=== PATIENT | female | born 1960 | race Caucasian/White ===

== ENCOUNTER 2020-05-19 14:28 | Inpatient (IN) | payer MEDICARE, OTHER ==
[~2020-05-19] VITALS: Ht 152.4 cm; Wt 72.6 kg
[~2020-05-19 14:28] MED LIST: ALBU18HF2 INH; BUDE10.2 INH; ESCI20TA PO; LORA-259 PO; LORA10TA68 PO; MONT10TA22 PO; OMEP20CA15 PO; TIOT18CA3 INH; ZIPR20CA2 PO
[2020-05-19] MEDS ORDERED: DICL100G16 TP (14:56)
[2020-05-19] MEDS ORDERED: ERGO500040 PO (14:56)
[2020-05-19] MEDS ORDERED: DOCU250C21 PO (14:56)
[2020-05-19] MEDS ORDERED: NEBIVOLOL HCL PO (14:56)
[2020-05-19] MEDS ORDERED: ESTR2TAB PO (14:56)
[2020-05-19] MEDS ORDERED: OLAN5TAB3 PO (14:56)
[2020-05-19] MEDS ORDERED: BACL10TA PO (14:56)
[2020-05-19] MEDS ORDERED: LACT10SO PO (14:56)
[2020-05-19] MEDS ORDERED: TYL2T PO (14:56)
[2020-05-19] MEDS ORDERED: FURO20TA4 PO (14:57)
[2020-05-19] MEDS ORDERED: MAGNESIUM HYDROXIDE 30 ML UDC PO PRN (15:00)
[2020-05-19] MEDS ORDERED: TEMAZEPAM 7.5 MG CAPSULE PO PRN (15:00)
[2020-05-19] MEDS ORDERED: BLOOD SUGAR DIAGNOSTIC 1 EACH STRIP IN ONE (15:00)
[2020-05-19] MEDS ORDERED: CHOL500052 PO (15:01)
[2020-05-19] MEDS ORDERED: ZIPR20CA2 PO (15:03)
[2020-05-19] MEDS ORDERED: LINA145C PO (15:06)
[2020-05-19] MEDS ORDERED: BUPR-319 PO (15:06)
[2020-05-19] MEDS ORDERED: ACETAMINOPHEN 325 MG TABLET PO PRN (15:30)
[2020-05-19] MEDS: DOCUSATE SODIUM 250 MG CAPSULE PO SCH (17:00)
[2020-05-19] MEDS ORDERED: Medication Not On Formulary EA (Budesonide/Formoterol Fumarate (Symbicort 160-4.5 Mcg In INH SCH (17:00)
[2020-05-19] MEDS ORDERED: DICLOFENAC TOPICAL 100 GM GEL..GM. TP SCH (17:00)
[2020-05-19] MEDS ORDERED: ZIPRASIDONE 20 MG CAPSULE PO SCH (17:30)
--- NOTE | 2020-05-19 18:20 | NUR ---
GPS/RN- ADMISSION NOTES ADMITTED 60 YEARS OLD FEMALE PATIENT FROM [facility] ER. PATIENT ON 5150 HOLD FOR GD ADULT. PATIENT A/O X4 AMBULATORY STEADY GAIT. PATIENT IS UNCOOPERATIVE REFUSED TO BE INTERVIEWED DURING THE ADMISSION PROCESS. PATIENT IS ANGRY,ARGUMENTATIVE STATED " I WANT TO GO HOME ,DON'T TALK TO ME OR TOUCH ME". PATIENT REFUSED FULL BODY ASSESSMENT , PHOTO TAKEN AND MRSA SWAB. DR. PALM ( PSYCHIATRIST) SEEN THE PATIENT WITH ORDERS. DR. MYERS (OFFICE WORKFORCE PLANNER) DID RECONCILED PATIENT MEDICATIONS. PATIENT WAS ORIENTED IN THE UNIT AND UNIT POLICIES. PATIENT'S RIGHT BOOKLET AND ADVISEMENT WAS GIVEN TO THE PATIENT. PATIENT GAVE VERBAL CONSENT TO CALL HER MALE FRIEND ELLENMELINDA CARMONA AT [phone]. CALLED PATIENT SISTER CRISTOBAL CONNOR ) BUT THE NUMBER IS NOT IN SERVICE. WILL ENDORSE TO INCOMING NURSE/SHIFT TO CONTINUE MONITORING FOR SAFETY AND BEHAVIOR AND FOR CONTINUITY OF CARE .
--- NOTE | 2020-05-19 18:46 | NUR ---
GPS/RN-NOTES PATIENT REFUSED GEODON 40MG P.O SCHEDULED AT 1700. STATED" I WILL NEVER TAKE ANY MEDICATIONS WITH THAT DOCTOR",EXPLAINED RISK AND BENEFITS BUT PATIENT STILL REFUSED. OFFERED X3
[2020-05-19] MEDS: IPRATROPIUM NEB FS 0.5 MG/2.5 ML AMPUL.NEB NEB SCH (19:30)
[2020-05-19 20:13] VITALS: BP 108/71
[2020-05-19] MEDS: MAG HYDROX/AL HYDROX/SIMETH 30 ML UDC PO PRN (20:36)
--- NOTE | 2020-05-19 20:37 | NUR ---
GPS RN NOTE: INDIGESTION PT WAS COMPLAINING OF INDIGESTION, ASKED PT IF SHE WOULD LIKE MAALOX, SHE SAID YES. ADMIN MAALOX @ 2035. WILL REASSESS AND CONTINUE TO MONITOR Q15MIN FOR SAFETY AND BEHAVIOR,
[2020-05-19] MEDS: BACLOFEN (10 MG) 10 MG TABLET PO SCH (21:23)
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
[2020-05-20] MEDS: MAG HYDROX/AL HYDROX/SIMETH 30 ML UDC PO PRN (02:16)
--- NOTE | 2020-05-20 02:18 | NUR ---
GPS RN NOTE: INDIGESTION PT COMPLAINED OF HAVING INDIGESTION AGAIN SAID SHE WANTED WHAT I GAVE HER BEFORE, ADMIN MAAOLX PRN AT 0216. WILL REASSESS AND CONTINUE TO MONITOR Q15MIN FOR SAFETY AND BEHAVIOR
[2020-05-20] MEDS: IPRATROPIUM NEB FS 0.5 MG/2.5 ML AMPUL.NEB NEB SCH ×4 (02:27→19:30)
[2020-05-20 07:10] LABS: ALBUMIN 2.7 g/dL (3.4-5.0); BILIRUBIN,TOTAL 0.1 mg/dL (0.2-1.0); CALCIUM, SERUM 8.6 mg/dL (8.5-10.1); CREATININE 1.2 mg/dL (0.6-1.3); POTASSIUM 4.1 mmol/L (3.5-5.1); TOTAL PROTEIN, SERUM 6.2 g/dL (6.4-8.2)
[2020-05-20 07:11] LABS: CHOLESTEROL 189 mg/dL (<200); HDL CHOLESTEROL 50 mg/dL (40-60); LDL 112 mg/dL (0-99); TRIGLYCERIDES 173 mg/dL (30-150)
[2020-05-20 08:00] VITALS: BP 123/55
[2020-05-20] MEDS ORDERED: FLUTICASONE/VILANTEROL 1 EACH BLST.W.DEV IH SCH (09:00)
[2020-05-20] MEDS ORDERED: Medication Not On Formulary EA (Linaclotide (Linzess) 145 MCG) PO SCH (09:00)
[2020-05-20] MEDS: LACTULOSE 10 G/15 ML UDC (PYXIS) PO SCH (09:00)
[2020-05-20] MEDS: FUROSEMIDE 20 MG TABLET PO SCH ×2 (09:01→10:33)
[2020-05-20] MEDS: LORATADINE 10 MG TABLET PO SCH (09:01)
[2020-05-20] MEDS: DOCUSATE SODIUM 250 MG CAPSULE PO SCH ×2 (09:01→16:53)
[2020-05-20] MEDS: NICOTINE PATCH (14MG) 14 MG PATCH.TD24 TD SCH (09:01)
[2020-05-20] MEDS: PANTOPRAZOLE 40 MG TABLET.DR PO SCH (09:01)
[2020-05-20] MEDS: MONTELUKAST SODIUM (10MG) 10 MG TABLET PO SCH (09:01)
--- NOTE | 2020-05-20 10:16 | NUR ---
Family Contact: MAGEN called the pts sister, Nicole ([phone]), and was unable to leave a message because the call did not go through and it sounded like the SW called a fax line. The number may not be accurate.
[2020-05-20] MEDS: LINZESS 145MCG PO SCH (10:28)
[2020-05-20] MEDS: ESTRADIOL 1 MG TABLET PO SCH (10:28)
[2020-05-20] MEDS: SYMBICORT 160/4.5 INH SCH ×2 (10:28→16:53)
--- NOTE | 2020-05-20 10:31 | NUR ---
Family Contact: SW called the pts Kalin coulter ([phone]), who stated that the pt has been living in her home and that her sister and brother in law are involved in her care but they want to keep her in institutions. Pts yfn states that home is a safe environment for her but she needs more therapeutic help. SW stated that she will keep him involved in the discharge planning.
--- NOTE | 2020-05-20 10:33 | NUR ---
GPS RN NOTES PATIENT REFUSED 0900 LASIX. MEDICATION WAS DISPOSED IN MEDICATION WASTE CONTAINER.
--- NOTE | 2020-05-20 10:51 | NUR ---
Initial Discharge Plan: Pt currently resides in a home located at [address] [place] [address]; ([phone]) with others. Per pt, she would like to return so she can pack her belongings and move. MAGEN will work with the pt and the MD regarding appropriate discharge planning. SW will form a safe and proper discharge.
--- NOTE | 2020-05-20 13:05 | NUR ---
Individual Intervention with the MD and the pt: spoke to the pt about her current paranoid delusions and the pt stated that she still feels as if she was poisoned and that is why she is feeling groggy today. MD encouraged the pt to take Geodon and the pt state that she would comply with her medications. Pt then stated that she does not think that she should return to her home and the MD stated that she agreed. stated that the SW will assist with placement once she has stabilized a bit more.
--- NOTE | 2020-05-20 13:30 | NUR ---
RT PT REF BOTH SCHEDULED BREATHING TX TODAY. NO SOB OR RESP DISTRESS NOTED.
[2020-05-20] MEDS: ZIPRASIDONE 20 MG CAPSULE PO SCH (14:16)
[2020-05-20 16:00] VITALS: BP 120/72
--- NOTE | 2020-05-20 16:53 | NUR ---
GPS RN NOTES PATIENT ASLEEP, HARD TO AROUSE. PETTING HER HEAD MADE HER WAKE UP MORE. A BIT SLOW RESPONDING, REFUSED MEDS BECAUSE WANTS TO SLEEP. CHECKED VITAL SIGNS: BP: 124/70, HR 63 O2 98% ON ROOM AIR, BLOOD SUGAR 111, DECLINES ANY PAIN. WILL CONTINUE TO MONITOR PATIENT
--- NOTE | 2020-05-20 17:26 | NUR ---
GPS RN NOTES PATIENT IN BED, ASLEEP. BREATHING IS EVEN AND UNLABORED; NO SOB PRESENT AT THE MOMENT. NO S/S OF PAIN SUCH FACIAL GRIMACING, MOANING OR GUARDING. WILL CONTINUE TO MONITOR.
--- NOTE | 2020-05-20 17:46 | NUR ---
Dr. Forbes made aware that pt. is sedated but arousable. V/S taken: BP 125/72, MS 67, temp. 98.0 and oxygen sat 98%, RR 20 and with an orders of stat CBC,CMP, Magnesium, Troponin and EKG.
--- NOTE | 2020-05-20 18:07 | NUR ---
GPS RN NOTES EKG DONE; NORMAL SINUS RHYTHM 63
[2020-05-20 19:20] LABS: ALANINE AMINOTRANSFERASE 24 U/L (12-78); ALKALINE PHOSPHATASE 83 U/L (46-116); ASPARTATE AMINOTRANSFERASE 13 U/L (15-37); CARBON DIOXIDE 28 mmol/L (21-32); CHLORIDE 104 mmol/L (98-107); GLUCOSE 115 mg/dL (74-106); POTASSIUM 4.4 mmol/L (3.5-5.1); SODIUM SERUM 138 mmol/L (136-145); TOTAL PROTEIN, SERUM 7.1 g/dL (6.4-8.2); UREA NITROGEN, BLOOD 15 mg/dL (7-18)
--- NOTE | 2020-05-20 19:20 | NUR ---
GPS RN OPENING NOTES: RECEIVED PATIENT ASLEEP AND IN BED, AROUSABLE, ANSWERS WHEN CALL HER NAME, TURNED TO SIDE. NO S/S OF DISTRESS NOTED. NO COMPLAIN OF PAIN. BED IN LOWEST AND LOCKED POSITION. BED SIDERAILS UP X2 FOR SAFETY. WILL CONTINUE TO MONITOR.
[2020-05-20 19:49] LABS: BILIRUBIN,TOTAL 0.1 mg/dL (0.2-1.0); CREATININE 1.3 mg/dL (0.6-1.3); MAGNESIUM 2.4 mg/dL (1.8-2.4)
[2020-05-20 20:00] VITALS: BP 106/55
[2020-05-20 20:09] VITALS: BP 106/55
[2020-05-20 20:39] LABS: BASOPHILS # (AUTO) 0.1 /CMM (0.0-0.2); BASOPHILS % (AUTO) 0.4 % (0.0-2.0); EOSINOPHILS % (AUTO) 2.7 % (0.0-6.0); HEMATOCRIT 38 % (33-45); HEMOGLOBIN 12.1 g/dL (11.5-14.8); LYMPHOCYTES # (AUTO) 3.4 /CMM (0.8-4.8); LYMPHOCYTES % (AUTO) 26.9 % (20.0-44.0); MEAN CORPUSCULAR HGB CONC 32 g/dl (31.0-36.0); MEAN CORPUSCULAR VOLUME 93 fL (82-100); MONOCYTES # (AUTO) 0.7 /CMM (0.1-1.30); MONOCYTES % (AUTO) 5.7 % (2.0-12.0); NEUTROPHILS # (AUTO) 8.1 /CMM (1.8-8.9); NEUTROPHILS % (AUTO) 64.3 % (43.0-81.0); PLATELET COUNT (AUTO) 509 /CMM (150-450); RED BLOOD CELL COUNT(AUTO) 4.09 MIL/uL (4.0-5.2); WHITE BLOOD COUNT (AUTO) 12.6 K/uL (4.3-11.0)
[2020-05-20] MEDS: BACLOFEN (10 MG) 10 MG TABLET PO SCH (21:34)
--- NOTE | 2020-05-20 21:48 | NUR ---
DR PALM CALLED AND SPOKE TO THE CHARGE NURSE RE: UPDATES OF THE PATIENT'S STATUS. PATIENT TOOK HER BACLOFEN. PATIENT IS RESPONSIVE. ANSWERS QUESTIONS. PATIENT OPENS HER EYES WHEN ASKED TO.
[2020-05-21] MEDS: IPRATROPIUM NEB FS 0.5 MG/2.5 ML AMPUL.NEB NEB SCH ×4 (01:30→20:19)
--- NOTE | 2020-05-21 02:45 | NUR ---
PATIENT IS FULLY AWAKE NOW, NO S/S OF DISTRESS NOTED.JUST COMPLAINING OF SORE ON HER BACK. ASKED FOR SALTINE CRACKERS,GIVEN. ASSISTED TO THE BEDSIDE COMMODE,PATIENT VOIDED 300ML CLEAR URINE OUTPUT, URINE SAMPLE COLLECTED FOR TEST AND PLACED IN THE CONTAINER WITH ICE,CALLED THE LAB FOR PICK-UP. PATIENT PREFERS TO WEAR DIAPER. ELECTRONICS ENGINEERING PROFESSOR CHANGED DIAPER.
[2020-05-21 05:09] LABS: APPEARANCE,URINE CLEAR (CLEAR); BILIRUBIN,URINE NEGATIVE (NEGATIVE); BLOOD, URINE NEGATIVE Ery/uL (NEGATIVE); COLOR,URINE YELLOW (YELLOW); KETONES,URINE NEGATIVE (NEGATIVE); LEUKOCYTE ESTERASE ,URINE NEGATIVE (NEGATIVE); NITRITE, URINE NEGATIVE (NEGATIVE); PH,URINE 5.5 (5.0-8.0); PROTEIN,URINE NEGATIVE (NEGATIVE); UGLUCOSE NEGATIVE (NEGATIVE); UROBILINOGEN,URINE 0.2 EU/dL (0.2)
--- NOTE | 2020-05-21 06:29 | NUR ---
CLOSING NOTES: PATIENT IS ASLEEP IN BED. NO S/S OF DISTRESS NOTED. BED IN LOWEST AND LOCKED POSITION. V/S WNL. AFEBRILE.
[2020-05-21 06:43] LABS: BASOPHILS # (AUTO) 0.1 /CMM (0.0-0.2); BASOPHILS % (AUTO) 0.5 % (0.0-2.0); EOSINOPHILS % (AUTO) 3.7 % (0.0-6.0); HEMATOCRIT 35 % (33-45); HEMOGLOBIN 11.8 g/dL (11.5-14.8); LYMPHOCYTES # (AUTO) 3.3 /CMM (0.8-4.8); LYMPHOCYTES % (AUTO) 32.3 % (20.0-44.0); MEAN CORPUSCULAR HGB CONC 33 g/dl (31.0-36.0); MEAN CORPUSCULAR VOLUME 91 fL (82-100); MONOCYTES # (AUTO) 0.7 /CMM (0.1-1.30); MONOCYTES % (AUTO) 7.3 % (2.0-12.0); NEUTROPHILS # (AUTO) 5.7 /CMM (1.8-8.9); NEUTROPHILS % (AUTO) 56.2 % (43.0-81.0); PLATELET COUNT (AUTO) 492 /CMM (150-450); RED BLOOD CELL COUNT(AUTO) 3.87 MIL/uL (4.0-5.2); WHITE BLOOD COUNT (AUTO) 10.2 K/uL (4.3-11.0)
[2020-05-21 07:18] LABS: ALBUMIN 2.7 g/dL (3.4-5.0); BILIRUBIN,TOTAL 0.1 mg/dL (0.2-1.0); CALCIUM, SERUM 8.6 mg/dL (8.5-10.1); CREATININE 1.2 mg/dL (0.6-1.3); MAGNESIUM 2.5 mg/dL (1.8-2.4); POTASSIUM 4.1 mmol/L (3.5-5.1); TOTAL PROTEIN, SERUM 6.4 g/dL (6.4-8.2)
--- NOTE | 2020-05-21 07:51 | NUR ---
RT PATIENT REFUSED BREATHING TX AT THIS TIME. NO SOB NOTED
[2020-05-21 08:00] VITALS: BP 114/77
[2020-05-21] MEDS: PANTOPRAZOLE 40 MG TABLET.DR PO SCH (08:14)
[2020-05-21] MEDS: NICOTINE PATCH (14MG) 14 MG PATCH.TD24 TD SCH (09:12)
[2020-05-21] MEDS: LORATADINE 10 MG TABLET PO SCH (09:12)
[2020-05-21] MEDS: DOCUSATE SODIUM 250 MG CAPSULE PO SCH ×3 (09:12→17:30)
[2020-05-21] MEDS: LACTULOSE 10 G/15 ML UDC (PYXIS) PO SCH (09:12)
[2020-05-21] MEDS: MONTELUKAST SODIUM (10MG) 10 MG TABLET PO SCH (09:13)
[2020-05-21] MEDS: ESTRADIOL 1 MG TABLET PO SCH (09:29)
[2020-05-21] MEDS: LINZESS 145MCG PO SCH (09:30)
[2020-05-21] MEDS: SYMBICORT 160/4.5 INH SCH ×2 (09:33→17:31)
[2020-05-21] MEDS: ALBUTEROL FS 2.5 MG/0.5 ML VIAL.NEB NEB PRN ×2 (13:01→20:19)
[2020-05-21] MEDS: ZIPRASIDONE 20 MG CAPSULE PO SCH ×3 (13:07→17:30)
[2020-05-21 16:00] VITALS: BP 111/56
--- NOTE | 2020-05-21 17:55 | NUR ---
RN NOTE: MEDICATION REFUSAL AND BEHAVIOR ESCALATION PT REFUSED 1700 GEODON DOSE. EDUCATED PT RE IMPORTANCE OF MEDICATION COMPLIANCE. PT BECAME VERBALLY AGGRESSIVE. YELLING AND SCREAMING. "I DON'T HAVE A CARDIAC PROBLEM. I AM GOING TO WRITE YOU UP. YOU CAN'T KEEP ME HERE. I WAS ONLY ON A 3 DAY HOLD. I DO NOT HAVE A PSYCHIATRIC PROBLEM". PT DELUSIONAL. CALLING NURSING CLAIMS ASSISTANT. STATING CNAS ARE NOT CHANGING GLOVES BETWEEN PATIENTS AND NOT SHOWERING HER. ATTEMPTED TO REORIENT PT. PT CONTINUED TO YELL.
[2020-05-21] MEDS: LORAZEPAM 0.5 MG TABLET PO PRN (19:52)
--- NOTE | 2020-05-21 19:52 | NUR ---
RN NOTES : ANXIETY PT. C/O FEELING ANXIOUS PARANOID, PACING IN HALLWAY,ASKING FOR ATIVAN , ATIVAN 0.5 MG PO PRN GIVEN PER PT. REQUEST, WILL CONTINUE TO MONITOR.
[2020-05-21 20:08] VITALS: BP 150/54
[2020-05-21 21:09] VITALS: BP 121/69
[2020-05-21] MEDS: BACLOFEN (10 MG) 10 MG TABLET PO SCH (22:04)
[2020-05-21] MEDS: MAG HYDROX/AL HYDROX/SIMETH 30 ML UDC PO PRN (23:41)
--- NOTE | 2020-05-21 23:44 | NUR ---
RN NOTES: INDIGESTION PT. C/O INDIGESTION MAALOX 30 ML PO PRN GIVEN PER PT. REQUEST , WILL CONTINUE TO MONITOR.
[2020-05-22] MEDS: IPRATROPIUM NEB FS 0.5 MG/2.5 ML AMPUL.NEB NEB SCH ×4 (01:30→19:30)
--- NOTE | 2020-05-22 06:49 | NUR ---
GPS RN NOTES: PT. RESTING IN HER ROOM, . NO S/S OF DISTRESS NOTED . PT. CALM COOPERTIVE NOTED AT THIS TIME ,NO CHANGE OF CONDITION NOTED ,AND NO BEHAVIOR PROBLEMS NOTED, ALL CARE NEEDS MET ANTICIPATED. WILL CONTINUE TO MONITOR FOR SAFETY, BEHAVIOR, AND ENDORSE TO AM SHIFT FOR CONTINUITY OF CARE.
[2020-05-22 08:00] VITALS: BP 112/58
[2020-05-22] MEDS: PANTOPRAZOLE 40 MG TABLET.DR PO SCH (08:06)
[2020-05-22] MEDS: LACTULOSE 10 G/15 ML UDC (PYXIS) PO SCH (08:50)
[2020-05-22] MEDS: MAG HYDROX/AL HYDROX/SIMETH 30 ML UDC PO PRN ×3 (08:50→21:58)
[2020-05-22] MEDS: MONTELUKAST SODIUM (10MG) 10 MG TABLET PO SCH (08:50)
[2020-05-22] MEDS: FUROSEMIDE 20 MG TABLET PO SCH (08:51)
[2020-05-22] MEDS: LORATADINE 10 MG TABLET PO SCH (08:51)
[2020-05-22] MEDS: DOCUSATE SODIUM 250 MG CAPSULE PO SCH ×2 (08:51→17:49)
[2020-05-22] MEDS: NICOTINE PATCH (14MG) 14 MG PATCH.TD24 TD SCH (08:52)
--- NOTE | 2020-05-22 08:52 | NUR ---
RN NOTE: EMESIS PT C/O HEART BURN. PT REPORTED EMESIS. UNABLE TO ASSESS AMT. MEDICATED WITH MAALOX PO PRN.
[2020-05-22] MEDS: SYMBICORT 160/4.5 INH SCH ×2 (08:55→17:50)
[2020-05-22] MEDS: ESTRADIOL 1 MG TABLET PO SCH (08:56)
[2020-05-22] MEDS: LINZESS 145MCG PO SCH (08:56)
[2020-05-22] MEDS ORDERED: AMPICILLIN 500 MG VIAL IM SCH (12:00)
[2020-05-22] MEDS ORDERED: OLANZAPINE 10 MG VIAL IM STA (12:12)
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
[2020-05-22] MEDS: ZIPRASIDONE 20 MG CAPSULE PO SCH ×3 (13:00→17:49)
--- NOTE | 2020-05-22 13:41 | NUR ---
RN NOTE: MEDICATION HELD GEODON HELD DUE TO ZYPREXA 1M. PT IS AWAKE AND AGITATED.
--- NOTE | 2020-05-22 15:30 | NUR ---
RN NOTE: CALL TO DR. KANG AT [facility] REGARDING URINE CULTURE. AWAITING CALL BACK
[2020-05-22 16:00] VITALS: BP 136/54
--- NOTE | 2020-05-22 17:55 | NUR ---
RN NOTE: MEDICATION REFUSAL AND BEHAVIOR ESCALATION ATTEMPTED TO GIVE 1700 MEDICATION. PT REFUSED MEDICATION UNTIL SHE RECEIVED MAALOX. PT RECEIVED MAALOX AND STARTED YELLING AND PACING AROUND THE UNIT. PT REPORTED FEELING "SHORT OF BREATH" SPO2 98%. INHALER PROVIDED AND PT CONTINUED TO YELL. PATIENT CALLING NURSING PREPARATION ROOM WORKER AND REPORTING SHE HAS NOT RECEIVED HER MEDICATIONS. PT THEN REFUSED BECCA, YELLING "MARINA ALREADY HAD THAT TODAY". RT CALLED FOR BREATHING TREATMENT TO BE PROVIDED. PT IS UNABLE TO BE REDIRECTED. YELLING AND DEMANDING HER CELL PHONE. WILL CONT TO MONITOR AND NOTIFY MD IF BEHAVIOR CONTINUES TO ESCALATE.
[2020-05-22] MEDS ORDERED: SULFAMETH/TRIMETH 800/160 MG 1 UDTAB TABLET PO SCH (21:00)
--- NOTE | 2020-05-22 22:01 | NUR ---
Pt c/o indigestion. Requesting for Maalox 30 ml. Stating, "i have heartburn because the morning nurse did not give me my Protonix in the morning". Maalox 30 ml po prn given as ordered. Charge nurse aware. Will continue to monitor.
--- NOTE | 2020-05-22 22:09 | NUR ---
NURSES NOTES: PATIENT REQUESTING FOR PROTONIX 40 MG TAB NOW. PATIENT CLAIMS SHE HAS GERD AND THAT SHE NEEDS IT. SIGNAL OPERATOR TECHNICAL REACHED OUT TO FOR ORDERS. GAVE ORDER FOR ONE TIME DOSE OF PROTONIX 40 MG TAB NOW. WILL CONTINUE TO MONITOR PATIENT.
[2020-05-22] MEDS: BACLOFEN (10 MG) 10 MG TABLET PO SCH (22:24)
[2020-05-22] MEDS ORDERED: PANTOPRAZOLE 40 MG TABLET.DR PO ONE (22:30)
--- NOTE | 2020-05-23 00:01 | NUR ---
Post 1 hour indigestion relieved. Pt calm and asleep in bed easy to arouse. Will continue to monitor.
[2020-05-23] MEDS: IPRATROPIUM NEB FS 0.5 MG/2.5 ML AMPUL.NEB NEB SCH ×4 (01:30→19:30)
[2020-05-23] MEDS: PANTOPRAZOLE 40 MG TABLET.DR PO SCH (07:19)
--- NOTE | 2020-05-23 07:21 | NUR ---
RN NOTE- PAGED RT FOR BREATHING TX. STATED ON ROUNDS AND WILL COME
[2020-05-23 08:00] VITALS: BP 123/60
[2020-05-23] MEDS: LACTULOSE 10 G/15 ML UDC (PYXIS) PO SCH (08:11)
[2020-05-23] MEDS: MONTELUKAST SODIUM (10MG) 10 MG TABLET PO SCH (08:11)
[2020-05-23] MEDS: NICOTINE PATCH (14MG) 14 MG PATCH.TD24 TD SCH (08:11)
[2020-05-23] MEDS: DOCUSATE SODIUM 250 MG CAPSULE PO SCH ×2 (08:11→16:48)
[2020-05-23] MEDS: FUROSEMIDE 20 MG TABLET PO SCH (08:12)
[2020-05-23] MEDS: LORATADINE 10 MG TABLET PO SCH (08:12)
[2020-05-23] MEDS: ESTRADIOL 1 MG TABLET PO SCH (08:13)
[2020-05-23] MEDS: SYMBICORT 160/4.5 INH SCH ×2 (08:13→16:48)
[2020-05-23] MEDS: LINZESS 145MCG PO SCH (08:14)
--- NOTE | 2020-05-23 08:54 | NUR ---
RN NOTE- RT STATED PT REFUSED RX. SATS 98% IN NO DISTRESS. WILL RETURN LATER TO ADMINISTER
--- NOTE | 2020-05-23 09:00 | NUR ---
RN NOTE- PT WITHDRAWN DISORGANIZED BLUNTED AFFECT PT IS DELUSIONAL AND INTERNALLY PREOCCUPIED DENIES SI HI AH VH. MED COMPLIANT PO INTAKE [facility] CONTACT ENGAGES MINIMALLY DIRECTABLE
--- NOTE | 2020-05-23 10:00 | NUR ---
RN NOTE- DR VILLEDA AT UNIT. SHOWED HIM PTS UA CX RESULTS. STATED SINCE SHES ASYMPTOMATIC AND THERE IS NO SENSITIVITY YET AND SHE HAS SO MANY ALLERGIES, WE WILL WAIT ON ANY TX REGIMEN
[2020-05-23] MEDS: ZIPRASIDONE 20 MG CAPSULE PO SCH ×2 (12:09→21:57)
--- NOTE | 2020-05-23 13:30 | NUR ---
RN NOTE- RT CALLED REGARDING BREATHING TX
[2020-05-23 16:00] VITALS: BP 135/73
--- NOTE | 2020-05-23 16:01 | NUR ---
SNF Referral: This business writer faxed pt's clinicals to Lance Chapa for [facility] or [facility] ([phone]). This business writer sent H & P, medication list, and laboratory results.
--- NOTE | 2020-05-23 17:00 | NUR ---
RN NOTE- DR PALM ORDERED EXG ON PT. ORDERED.
--- NOTE | 2020-05-23 18:15 | NUR ---
RN NOTE- EKG COMPLETED. FORWARDED RESULTS TO DR PALM
[2020-05-23 19:40] VITALS: BP 133/72
[2020-05-23] MEDS: BACLOFEN (10 MG) 10 MG TABLET PO SCH (21:57)
[2020-05-24] MEDS: IPRATROPIUM NEB FS 0.5 MG/2.5 ML AMPUL.NEB NEB SCH ×4 (01:30→19:30)
[2020-05-24] MEDS: PANTOPRAZOLE 40 MG TABLET.DR PO SCH (07:20)
[2020-05-24 08:00] VITALS: BP 153/74
[2020-05-24] MEDS: ESTRADIOL 1 MG TABLET PO SCH (08:05)
[2020-05-24] MEDS: LINZESS 145MCG PO SCH (08:05)
[2020-05-24] MEDS: LORATADINE 10 MG TABLET PO SCH (08:06)
[2020-05-24] MEDS: FUROSEMIDE 20 MG TABLET PO SCH (08:06)
[2020-05-24] MEDS: SYMBICORT 160/4.5 INH SCH ×2 (08:06→16:16)
[2020-05-24] MEDS: LACTULOSE 10 G/15 ML UDC (PYXIS) PO SCH (08:06)
[2020-05-24] MEDS: DOCUSATE SODIUM 250 MG CAPSULE PO SCH ×2 (08:06→16:16)
[2020-05-24] MEDS: NICOTINE PATCH (14MG) 14 MG PATCH.TD24 TD SCH (08:06)
[2020-05-24] MEDS: MONTELUKAST SODIUM (10MG) 10 MG TABLET PO SCH (08:06)
[2020-05-24] MEDS: ZIPRASIDONE 20 MG CAPSULE PO SCH ×2 (08:13→21:30)
[2020-05-24] MEDS: ALBUTEROL FS 2.5 MG/0.5 ML VIAL.NEB NEB PRN ×2 (08:20→12:46)
--- NOTE | 2020-05-24 08:44 | NUR ---
MAGEN Individual Note: This sheet writer met with pt to discuss placement. This sheet writer explained pt is accepted at [facility] and pt accepted.
--- NOTE | 2020-05-24 09:00 | NUR ---
RN NOTE- PT IRRITABLE, DELUSIONAL THINKING PEOPLE ARE OUT TO GET HER. PARANOIA PRESENT. MED COMPLIANT. RT TO BEDSIDE FOR BREATHING TX. ALL NEEDS ATTENDED PO INTAKE GOOD DENIES SI HI AH VH
--- NOTE | 2020-05-24 14:37 | NUR ---
SNF Contact: Pt is accepted at [facility], karly Cao.
[2020-05-24 16:00] VITALS: BP 143/73
[2020-05-24 19:32] VITALS: BP 147/69
--- NOTE | 2020-05-24 20:17 | NUR ---
GPS RN NOTES: RECEIVED PT IN HALLWAY AGITATED, A/O X3. APPEARS DEPRESSED, BLUNT AFFECT, IRRITABLE, VERBALLY AGGRESSIVE, NEEDY, RESTLESS, ANXIOUS, LABILE. COMPLAINING OF SOB BUT REFUSED BREATHING TREATMENT FROM RT. V/S TAKEN, O2 SAT 96%, BP147/69, P86, R16, T97.8. RESPIRATION EVEN AND UNLABORED WITH EQUAL RISE AND FALL OF THE CHEST, ON ROOM AIR. NO S/S OF DISTRESS AT THIS TIME. BED IN LOW POSITION AND LOCKED, CALL LIGHT WITHIN REACH. PT CURRENTLY LAYING ON BED CALM. WILL CONTINUE TO MONITOR Q15 MINS AND Q1 HR FOR SAFETY, MOOD, AND BEHAVIOR.
[2020-05-24] MEDS ORDERED: ALBUTEROL SULFATE INH 18 GM HFA.AER.AD IH PRN (21:30)
[2020-05-24] MEDS: BACLOFEN (10 MG) 10 MG TABLET PO SCH (21:30)
[2020-05-25] MEDS: IPRATROPIUM NEB FS 0.5 MG/2.5 ML AMPUL.NEB NEB SCH ×4 (01:47→20:20)
[2020-05-25] MEDS: ALBUTEROL FS 2.5 MG/0.5 ML VIAL.NEB NEB PRN ×3 (01:47→13:40)
--- NOTE | 2020-05-25 06:28 | NUR ---
GPS RN CLOSING NOTES: PT SLEEPING COMFORTABLY ON BED. SLEPT FOR 3HR THIS SHIFT. NO S/S OF DISTRESS. RESPIRATION EVEN AND UNLABORED WITH EQUAL RISE AND FALL OF THE CHEST ON ROOM AIR. ALL PATIENT CARE NEEDS MET ANTICIPATED. WILL CONTINUE TO MONITOR AND ENDORSE TO AM SHIFT.
[2020-05-25 08:00] VITALS: BP 120/69
[2020-05-25] MEDS: DOCUSATE SODIUM 250 MG CAPSULE PO SCH ×2 (08:23→16:53)
[2020-05-25] MEDS: MONTELUKAST SODIUM (10MG) 10 MG TABLET PO SCH (08:23)
[2020-05-25] MEDS: ZIPRASIDONE 20 MG CAPSULE PO SCH (08:23)
[2020-05-25] MEDS: PANTOPRAZOLE 40 MG TABLET.DR PO SCH (08:23)
[2020-05-25] MEDS: LORATADINE 10 MG TABLET PO SCH (08:24)
[2020-05-25] MEDS: LACTULOSE 10 G/15 ML UDC (PYXIS) PO SCH (08:24)
[2020-05-25] MEDS: FUROSEMIDE 20 MG TABLET PO SCH (08:24)
[2020-05-25] MEDS: ESTRADIOL 1 MG TABLET PO SCH (08:27)
[2020-05-25] MEDS: LINZESS 145MCG PO SCH (08:28)
[2020-05-25] MEDS: SYMBICORT 160/4.5 INH SCH ×2 (08:28→16:53)
[2020-05-25] MEDS: NICOTINE PATCH (14MG) 14 MG PATCH.TD24 TD SCH (08:28)
--- NOTE | 2020-05-25 10:16 | NUR ---
MAGEN Coordination of Care: This business writer spoke with Michelle ([phone]) to schedule an apt with her psychiatrist Dr. Bhatti. She stated they have closed her case because she has a balance due that she has not paid for. This business writer contacted pt's primary doctor's office and spoke with Georgie who scheduled an apt for June 01 at 10AM and will refer pt to a psychiatrist. MD will monitor pt's psychotropic medications.
--- NOTE | 2020-05-25 12:37 | NUR ---
MAGEN Family Contact: MAGEN called the pts Kalin coulter ([phone]) and left a voicemail that pt will be discharged tomorrow to [facility].
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
[2020-05-25] MEDS: ALBUTEROL SULFATE IH PRN ×2 (16:51→21:07)
[2020-05-25] MEDS: MAG HYDROX/AL HYDROX/SIMETH 30 ML UDC PO PRN (20:09)
--- NOTE | 2020-05-25 20:09 | NUR ---
GPS-RN NOTE: MAALOX 30ML PO GIVEN FOR INDIGESTION. WILL CONTINUE TO MONITOR.
[2020-05-25 20:10] VITALS: BP 157/77
[2020-05-25] MEDS: LORAZEPAM 0.5 MG TABLET PO PRN (20:42)
--- NOTE | 2020-05-25 20:42 | NUR ---
GPS-RN NOTE: ANXIETY PATIENT IS ANXIOUS AND RESTLESS. ADMINISTERED ATIVAN 0.5MG PO ORDERED. WILL CONTINUE TO MONITOR FOR PATIENT'S SAFETY.
[2020-05-25] MEDS ORDERED: ZIPRASIDONE 20 MG CAPSULE PO SCH (21:00)
[2020-05-25] MEDS: BACLOFEN (10 MG) 10 MG TABLET PO SCH (21:23)
--- NOTE | 2020-05-25 21:30 | NUR ---
GPS-RN NOTE: MEDICATION REFUSAL PATIENT REFUSED SCHEDULED BACLOFEN FOR TONIGHT. EDUCATED PT REGARDING THE IMPORTANCE OF MEDICATION COMPLIANCE. PT CONTINUED TO REFUSE X3. PT STATES, "IT MAKES ME UP ALL NIGHT WHEN I TOOK IT LAST NIGHT". WILL CONTINUE TO MONITOR AND WILL ENDORSE TO THE DAY SHIFT NURSE.
[2020-05-25 22:12] VITALS: BP 135/88
[2020-05-26] MEDS: IPRATROPIUM NEB FS 0.5 MG/2.5 ML AMPUL.NEB NEB SCH ×3 (01:55→13:24)
[2020-05-26 08:00] VITALS: BP 104/55
[2020-05-26] MEDS: ESTRADIOL 1 MG TABLET PO SCH (08:13)
[2020-05-26] MEDS: PANTOPRAZOLE 40 MG TABLET.DR PO SCH (08:13)
[2020-05-26] MEDS: LINZESS 145MCG PO SCH (08:13)
[2020-05-26] MEDS: LACTULOSE 10 G/15 ML UDC (PYXIS) PO SCH (08:14)
[2020-05-26] MEDS: DOCUSATE SODIUM 250 MG CAPSULE PO SCH (08:14)
[2020-05-26] MEDS: SYMBICORT 160/4.5 INH SCH (08:14)
[2020-05-26] MEDS: LORATADINE 10 MG TABLET PO SCH (08:14)
[2020-05-26] MEDS: ZIPRASIDONE 20 MG CAPSULE PO SCH (08:14)
[2020-05-26] MEDS: NICOTINE PATCH (14MG) 14 MG PATCH.TD24 TD SCH (08:15)
[2020-05-26] MEDS: MONTELUKAST SODIUM (10MG) 10 MG TABLET PO SCH (08:15)
[2020-05-26] MEDS: FUROSEMIDE 20 MG TABLET PO SCH (08:15)
--- NOTE | 2020-05-26 08:18 | NUR ---
PT REFUSED RESP TX. NO S/S OF SOB NOTED ATT. WILL CONT TO MONITOR Addendum: 05/26/20 at 0820 by LUCERO MELENDREZ RT Amended: Links added.
--- NOTE | 2020-05-26 10:33 | NUR ---
Dr. Forbes gave an order to D/C hold and D/C to [facility], to continue same meds including prn and to follow up with psych and medical doctors.
--- NOTE | 2020-05-26 12:04 | NUR ---
GPS ADVERTISER NOTE: PATIENT DISCHARGED TODAY TO [facility] [address] , [place] [address] VIA [facility] AT 12 PATIENT CLIVE HUGHES IS AWARE AND AGREEABLE PATIENT IS IN STABLE CONDITION. VSS. NO ACUTE DISTRESS NOTED. NO COMPLAINTS. COMPLIANT WITH MEDICATION MANAGEMENT. COOPERATIVE WITH PLAN OF CARE.EXIT CARE DONE PRINTED , SIGN AND GIVEN TO PATIENT PSYCHIATRIC TREATMENT PLANS MET. MEDICAL TREATMENT PLANS DEFERRED FOR CONTINUAL MONITORING. DENIES SI/HI/VAH AT THE TIME OF DISCHARGE. PATIENT REFUSED SKIN ASSESSMENT AND PICTURES TO BE TAKEN. EDUCATED PATIENT ABOUT AFTERCARE WITH COPY PROVIDED. RETURNED PERSONAL BELONGINGS TO PATIENT. MEDICATIONS RECONCILED WITH ALONG WITH PSYCHIATRIC DISCHARGE ORDERS. DISCHARGE PAPERWORK SIGNED. FOR FOLLOW UP WITH PSYCHIATRIST AND SPEEDER OPERATOR IN THE FACILITY, REPORT GIVEN TO BALAJI MIRANDA .
--- NOTE | 2020-05-26 13:20 | NUR ---
SW Discharge Note: Patient will be discharged to assisted facility, [facility], [place] [address]; ) via Ambulance transportation at 12PM. Patients shayy Gagnon ([phone]) is aware and agreeable. Semiconductor Lab Technician spoke with [facility] Movie Shot Camera Operator at [facility]; [phone], who stated patient will be accepted back at facility today. Per, ([phone]) has been made aware and agreeable with discharge plans. Patient is alert and oriented x3-4 and is unable to plan for self-care. Patient denies any suicidal or homicidal ideations. Patient is aware and agreeable with discharge plans. Patient will continue to follow-up with Psychiatrist Dr. Forbes and Public Health Training Assistant Dr. Pond at [facility] [id number] [place] [address], [place] [address]; ). Patient presents with euthymic and congruent mood.
== END 2020-05-26 13:20 | DRG 885 ==
LOC: GPS 14:28
PROVIDERS: ADMIT Psychiatry & Neurology Psychosomatic Medicine; ATTEND Internal Medicine
DX: F25.9 Schizoaffective disorder, unspecified (principal); F23 Brief psychotic disorder; E44.0 Moderate protein-calorie malnutrition; N39.0 Urinary tract infection, site not specified; F41.9 Anxiety disorder, unspecified; R53.1 Weakness; R27.8 Other lack of coordination; M19.90 Unspecified osteoarthritis, unspecified site; E88.09 Other disorders of plasma-protein metabolism, not elsewhere classified; F32.9 Major depressive disorder, single episode, unspecified; F43.10 Post-traumatic stress disorder, unspecified; F60.3 Borderline personality disorder; J44.9 Chronic obstructive pulmonary disease, unspecified; Z88.0 Allergy status to penicillin; Z88.2 Allergy status to sulfonamides; F17.210 Nicotine dependence, cigarettes, uncomplicated
CPT/HCPCS: 36415; 80053-TC; 80061-TC; 81000-TC; 82962-TC; 83735-TC; 84484-TC; 85025-TC; 87086-TC; 94799-TC; J0290; J3490

== ENCOUNTER 2021-02-01 20:38 | Inpatient (IN) | payer MEDICARE, OTHER ==
[~2021-02-01] VITALS: Ht 157.5 cm; Wt 64.9 kg
[~2021-02-01 20:38] MED LIST changes: +BACL10TA PO; +BUPR-319 PO; +CHOL500052 PO; +DICL100G16 TP; +DOCU250C21 PO; +ERGO500040 PO; +ESTR2TAB PO; +FURO20TA4 PO; +LACT10SO3 PO; +LINA145C PO; +NEBIVOLOL HCL PO; +OLAN5TAB3 PO; +TYL2T PO
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
[2021-02-01] MEDS ORDERED: TEMAZEPAM 7.5 MG CAPSULE PO PRN (21:30)
[2021-02-01] MEDS ORDERED: BLOOD SUGAR DIAGNOSTIC 1 EACH STRIP IN ONE (21:30)
--- NOTE | 2021-02-01 22:30 | NUR ---
RN NOTE PATIENT ASKING FOR HER HOME MEDICATION CLINDAMYCIN FOR HER CELLULITIS AT R INNER THIGH, START DATE IS UNKNOWN. NOTIFIED DR MOLINA, ORDERS RECEIVED TO GIVE CURRENT AND NEXT DOSE, AND ENDORSE/FOLLOW UP WITH AM SHIFT TO DECIDE WHETHER TO CONTINUE WITH THE REGIMEN. COLLECTION SUPERVISOR NOVEM AWARE.
[2021-02-01] MEDS ORDERED: ERGOCALCIFEROL (VITAMIN D 2) 50,000 UNIT CAPSULE PO SCH (23:00)
[2021-02-01] MEDS ORDERED: ALBUTEROL SULFATE INH 18 GM HFA.AER.AD IH PRN (23:00)
[2021-02-01] MEDS ORDERED: CLINDAMYCIN HCL 150 MG CAPSULE PO SCH (23:00)
[2021-02-01] MEDS ORDERED: ACETAMINOPHEN 325 MG TABLET PO PRN (23:00)
[2021-02-01] MEDS ORDERED: CHOLECALCIFEROL (VITAMIN D 3) 400 UNIT TABLET PO SCH (23:00)
[2021-02-01] MEDS: LORAZEPAM 0.5 MG TABLET PO PRN (23:33)
[2021-02-02] MEDS: IPRATROPIUM NEB FS 0.5 MG/2.5 ML AMPUL.NEB NEB SCH ×4 (01:30→19:30)
[2021-02-02] MEDS: ALBUTEROL FS 2.5 MG/3 ML VIAL.NEB NEB SCH ×4 (01:30→19:30)
[2021-02-02 06:55] LABS: CHOLESTEROL 219 mg/dL (<200); HDL CHOLESTEROL 48 mg/dL (40-60); LDL 126 mg/dL (0-99); TRIGLYCERIDES 247 mg/dL (30-150)
[2021-02-02] MEDS ORDERED: ALBUTEROL FS 2.5 MG/3 ML VIAL.NEB IH PRN (07:00)
[2021-02-02] MEDS ORDERED: CLINDAMYCIN HCL 150 MG CAPSULE PO SCH (07:00)
[2021-02-02 07:18] LABS: ALBUMIN 2.6 g/dL (3.4-5.0); BILIRUBIN,TOTAL 0.2 mg/dL (0.2-1.0); CALCIUM, SERUM 8.6 mg/dL (8.5-10.1); CREATININE 1.3 mg/dL (0.6-1.3); TOTAL PROTEIN, SERUM 6.2 g/dL (6.4-8.2)
[2021-02-02] MEDS ORDERED: OMEPRAZOLE 20 MG CAPSULE.DR PO SCH (07:30)
[2021-02-02 08:00] VITALS: BP 109/65
[2021-02-02] MEDS ORDERED: CLIN150C16 PO (08:15)
[2021-02-02] MEDS ORDERED: IPRA12.9 IH (08:15)
[2021-02-02] MEDS: BUDESONIDE RESPULE INH 0.5 MG/2 ML AMPUL.NEB NEB SCH ×2 (08:35→14:28)
[2021-02-02] MEDS: ESTRADIOL 1 MG TABLET PO SCH (08:36)
[2021-02-02] MEDS: MONTELUKAST SODIUM (10MG) 10 MG TABLET PO SCH (08:37)
[2021-02-02] MEDS: PANTOPRAZOLE 40 MG TABLET.DR PO SCH (08:37)
[2021-02-02] MEDS ORDERED: TIOTROPIUM BROMIDE 6 CAP/BOX CAP.W.DEV IH SCH (09:00)
[2021-02-02] MEDS ORDERED: LORATADINE 10 MG TABLET PO SCH (09:00)
[2021-02-02] MEDS ORDERED: DOCUSATE SODIUM 250 MG CAPSULE PO SCH (09:00)
[2021-02-02] MEDS ORDERED: Medication Not On Formulary EA (Budesonide/Formoterol Fumarate (Symbicort 160-4.5 Mcg In INH SCH (09:00)
[2021-02-02] MEDS ORDERED: FUROSEMIDE 20 MG TABLET PO SCH (09:00)
[2021-02-02] MEDS ORDERED: LACTULOSE 10 G/15 ML UDC (PYXIS) PO SCH (09:00)
[2021-02-02] MEDS ORDERED: DICLOFENAC TOPICAL 100 GM GEL..GM. TP SCH (09:00)
[2021-02-02] MEDS ORDERED: Medication Not On Formulary EA (Linaclotide (Linzess) 145 MCG) PO SCH ×2 (09:00)
--- NOTE | 2021-02-02 13:15 | NUR ---
[facility] Contact: SW received a call from Eva ([phone]) who stated that the pt is homeless and is disorganized and often refuses care.
[2021-02-02 16:00] VITALS: BP 141/72
--- NOTE | 2021-02-02 16:09 | NUR ---
Initial Discharge Plan: Pt is currently homeless and states that she needs SNF placement. SW will work with the pt and the MD regarding appropriate discharge planning. SW will form a safe and proper discharge.
[2021-02-02] MEDS: ZIPRASIDONE 20 MG CAPSULE PO SCH (17:43)
[2021-02-02 20:20] VITALS: BP 119/69
[2021-02-02] MEDS: TRAZODONE 50 MG TABLET PO SCH (21:18)
[2021-02-02] MEDS: MAG HYDROX/AL HYDROX/SIMETH 30 ML UDC PO PRN (21:18)
[2021-02-02] MEDS: LORAZEPAM 0.5 MG TABLET PO PRN (21:18)
--- NOTE | 2021-02-02 21:18 | NUR ---
GPS RN NOTE - PRN MED PATIENT C/O FEELING ANXIOUS AND HAVING INDIGESTION. ADMINISTERED ATIVAN AND MAALOX SUSP ORDERED.
[2021-02-02] MEDS ORDERED: BACLOFEN (10 MG) 10 MG TABLET PO SCH (22:00)
[2021-02-03] MEDS: ALBUTEROL FS 2.5 MG/3 ML VIAL.NEB NEB SCH ×4 (01:30→20:48)
[2021-02-03] MEDS: IPRATROPIUM NEB FS 0.5 MG/2.5 ML AMPUL.NEB NEB SCH ×4 (01:30→20:48)
[2021-02-03] MEDS: BUDESONIDE RESPULE INH 0.5 MG/2 ML AMPUL.NEB NEB SCH ×2 (02:10→15:00)
--- NOTE | 2021-02-03 06:42 | NUR ---
GPS RN CLOSING NOTE PATIENT LYING IN BED A/OX2. SLEEPING,CALM NO ACUTE DISTRESS NOTED. TOLERATING ROOM AIR WELL WITH NO SOB. SO S/SX OF PAIN AT THIS TIME. PATIENT IS MED COMPLIANT. PATIENT DENIES SI/HI AT THIS TIME. AMBULATORY STEADY GAIT. SAFTY MEASURES IN PLACE: BED IN LOWEST LOCKED POSITION, SIE RAILS UPX2, EDUCATED PATIENT TO USE CALL LIGHT. WILL CONT. MONITORING FOR SAFETY AND BEHAVIOR.
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
[2021-02-03 08:00] VITALS: BP 95/50
[2021-02-03] MEDS: ESTRADIOL 1 MG TABLET PO SCH (08:21)
[2021-02-03] MEDS: ZIPRASIDONE 20 MG CAPSULE PO SCH ×2 (08:21→16:33)
[2021-02-03] MEDS: BUPROPION XL 150 MG TAB.ER.24 PO SCH (08:21)
[2021-02-03] MEDS: MONTELUKAST SODIUM (10MG) 10 MG TABLET PO SCH (08:21)
[2021-02-03] MEDS: PANTOPRAZOLE 40 MG TABLET.DR PO SCH (08:21)
[2021-02-03] MEDS: NEOMY SULF/BACITRAC ZN/POLY 15 GM TUBE TP SCH (10:19)
--- NOTE | 2021-02-03 11:43 | NUR ---
Family Contact: Pts brother in law, Amilcar ([phone]), contacted the SW and stated that he wanted to be involved in the discharge plan for the pt. He stated that he is aware that she is homeless and SW stated that the hospital will find placement for her.
[2021-02-03 16:00] VITALS: BP 104/69
[2021-02-03 20:00] VITALS: BP 122/66
[2021-02-03] MEDS ORDERED: IPRATROPIUM NEB FS 0.5 MG/2.5 ML AMPUL.NEB ONE ×2 (20:22→23:52)
[2021-02-03] MEDS ORDERED: ALBUTEROL FS 2.5 MG/3 ML VIAL.NEB ONE ×2 (20:22→23:52)
[2021-02-03] MEDS: TRAZODONE 50 MG TABLET PO SCH (21:23)
--- NOTE | 2021-02-03 21:23 | NUR ---
RN NOTES: PT REFUSED NIGHT SCHEDULE MEDS , ENCOURGED X3 , PER PT. I FEELING SLEEPING , I DONT WANT TAKE IT.WILL CONTINUE WITH CARE , Addendum: 02/03/21 at 2127 by MOI GARCIA RN RN NOTES: PT REFUSED NIGHT SCHEDULE MEDS TRAZADONE 50 MG PO , ENCOURGED X3 , PER PT. I FEELING SLEEPING , I DONT WANT TAKE IT.WILL CONTINUE WITH CARE ,
[2021-02-04] MEDS: ALBUTEROL FS 2.5 MG/3 ML VIAL.NEB NEB SCH ×4 (01:59→19:30)
[2021-02-04] MEDS: IPRATROPIUM NEB FS 0.5 MG/2.5 ML AMPUL.NEB NEB SCH ×4 (01:59→19:30)
[2021-02-04] MEDS: BUDESONIDE RESPULE INH 0.5 MG/2 ML AMPUL.NEB NEB SCH ×2 (07:05→14:55)
[2021-02-04 08:00] VITALS: BP 117/57
[2021-02-04] MEDS: PANTOPRAZOLE 40 MG TABLET.DR PO SCH (08:22)
[2021-02-04] MEDS: ZIPRASIDONE 20 MG CAPSULE PO SCH ×2 (08:22→16:21)
[2021-02-04] MEDS: ESTRADIOL 1 MG TABLET PO SCH (08:22)
[2021-02-04] MEDS: BUPROPION XL 150 MG TAB.ER.24 PO SCH (08:23)
[2021-02-04] MEDS: MONTELUKAST SODIUM (10MG) 10 MG TABLET PO SCH (08:23)
[2021-02-04] MEDS: MAGNESIUM HYDROXIDE 30 ML UDC PO PRN (10:35)
[2021-02-04] MEDS: NEOMY SULF/BACITRAC ZN/POLY 15 GM TUBE TP SCH (10:35)
--- NOTE | 2021-02-04 10:35 | NUR ---
RN-NOTES C/O CONSTIPATION,MOM 30ML GIVEN PRN ORDER.
[2021-02-04 16:00] VITALS: BP 126/70
--- NOTE | 2021-02-04 17:44 | NUR ---
RN-NOTES DIRECTOR OF LABOR AND DELIVERY JIMMY SEEN THE PATIENT WITH VERBAL ORDER OF LACTULOSE 45G ONCE AND DULCOLAX 10MG SUP. DAILY PRN. NOTED AND CARRIED OUT.
[2021-02-04] MEDS ORDERED: BISACODYL SUPP (10 MG) 10 MG/SUPP.RECT SUPP.RECT RC PRN (18:00)
[2021-02-04] MEDS ORDERED: LACTULOSE 10 G/15 ML UDC (PYXIS) PO ONE (18:00)
--- NOTE | 2021-02-04 18:00 | NUR ---
RN-NOTES PATIENT STATED THAT MOM 30 ML DID NOT WORK, EXPLAINED THAT THE DIRECTOR OF GROUP SALES HAD A ORDER FOR LACTULOSE ONE TIME, AND THAT THE INCOMING NURSE WILL ADMINISTER AFTER THE PHARMACY WILL VERIFY. WILL ALSO ENDORSE TO THE INCOMING NURSE TO FOLLOW UP AND FOR THE CONTINUITY OF CARE.
--- NOTE | 2021-02-04 18:56 | NUR ---
RN-NOTES VERIFIED LACTULOSE ORDER TO WINDOW CASER JIMMY AND ORDERED TO CHANGE TO LACTULOSE 10G P.O ONCE. NOTED AND CARRIED OUT.
[2021-02-04] MEDS ORDERED: LACTULOSE 10 G/15 ML UDC (PYXIS) PO PRN (19:00)
[2021-02-04 20:00] VITALS: BP 118/57
[2021-02-04 20:03] VITALS: BP 118/57
[2021-02-04] MEDS: TRAZODONE 50 MG TABLET PO SCH (21:19)
--- NOTE | 2021-02-04 22:00 | NUR ---
COMPLAINING OF CONSTIPATION, GIVEN LACTULOSE X1
[2021-02-05] MEDS: IPRATROPIUM NEB FS 0.5 MG/2.5 ML AMPUL.NEB NEB SCH ×4 (02:01→19:33)
[2021-02-05] MEDS: ALBUTEROL FS 2.5 MG/3 ML VIAL.NEB NEB SCH ×4 (02:01→19:33)
--- NOTE | 2021-02-05 06:10 | NUR ---
RN NOTES ALERT/ORIENTED X3, ROOM AIR, NO COMPLAIN OF PAIN, VOLUNTARY ADMISSION, GIVEN LACTULOSE AT BEDTIME, NO BM YET. TOOK TRAZODONE SCHEDULED.
[2021-02-05] MEDS: BUDESONIDE RESPULE INH 0.5 MG/2 ML AMPUL.NEB NEB SCH ×2 (07:33→14:01)
[2021-02-05] MEDS: BUPROPION XL 150 MG TAB.ER.24 PO SCH (07:56)
[2021-02-05] MEDS: ESTRADIOL 1 MG TABLET PO SCH (07:56)
[2021-02-05] MEDS: MONTELUKAST SODIUM (10MG) 10 MG TABLET PO SCH (07:56)
[2021-02-05] MEDS: ZIPRASIDONE 20 MG CAPSULE PO SCH ×2 (07:56→16:19)
[2021-02-05] MEDS: PANTOPRAZOLE 40 MG TABLET.DR PO SCH (07:56)
[2021-02-05 08:00] VITALS: BP 114/52
[2021-02-05] MEDS: NEOMY SULF/BACITRAC ZN/POLY 15 GM TUBE TP SCH (08:06)
[2021-02-05 16:00] VITALS: BP 111/64
[2021-02-05 21:00] VITALS: BP 139/76
[2021-02-05] MEDS: TRAZODONE 50 MG TABLET PO SCH (21:17)
[2021-02-06] MEDS: IPRATROPIUM NEB FS 0.5 MG/2.5 ML AMPUL.NEB NEB SCH ×4 (01:29→23:26)
[2021-02-06] MEDS: ALBUTEROL FS 2.5 MG/3 ML VIAL.NEB NEB SCH ×4 (01:29→23:26)
[2021-02-06 08:00] VITALS: BP 116/52
[2021-02-06] MEDS: PANTOPRAZOLE 40 MG TABLET.DR PO SCH (08:19)
[2021-02-06] MEDS: ZIPRASIDONE 20 MG CAPSULE PO SCH ×2 (08:19→18:07)
[2021-02-06] MEDS: BUPROPION XL 150 MG TAB.ER.24 PO SCH (08:20)
[2021-02-06] MEDS: MONTELUKAST SODIUM (10MG) 10 MG TABLET PO SCH (08:20)
[2021-02-06] MEDS: NEOMY SULF/BACITRAC ZN/POLY 15 GM TUBE TP SCH (08:21)
[2021-02-06] MEDS: ESTRADIOL 1 MG TABLET PO SCH (08:24)
[2021-02-06] MEDS: BUDESONIDE RESPULE INH 0.5 MG/2 ML AMPUL.NEB NEB SCH ×2 (08:41→15:40)
[2021-02-06 15:51] VITALS: BP 118/65
[2021-02-06] MEDS: MAGNESIUM HYDROXIDE 30 ML UDC PO PRN (15:57)
[2021-02-06 20:00] VITALS: BP 128/48
--- NOTE | 2021-02-06 22:32 | NUR ---
GPS RN NOTES: OMNICELL DOWN, UNABLE TO PULL MEDS, COMMERCIAL CLEANER NOTIFIED. 24 HR HELP DESK NOTIFIED, AWAITING DISPATCH ENGINEERS.
[2021-02-06] MEDS: TRAZODONE 50 MG TABLET PO SCH (23:35)
[2021-02-07] MEDS ORDERED: IPRATROPIUM NEB FS 0.5 MG/2.5 ML AMPUL.NEB ONE ×2 (00:47→07:39)
[2021-02-07] MEDS ORDERED: ALBUTEROL FS 2.5 MG/3 ML VIAL.NEB ONE ×2 (00:47→07:39)
[2021-02-07] MEDS: ALBUTEROL FS 2.5 MG/3 ML VIAL.NEB NEB SCH ×4 (01:07→19:53)
[2021-02-07] MEDS: IPRATROPIUM NEB FS 0.5 MG/2.5 ML AMPUL.NEB NEB SCH ×4 (01:07→19:53)
[2021-02-07] MEDS ORDERED: BUDESONIDE RESPULE INH 0.25 MG/2 ML AMPUL.NEB ONE (07:39)
[2021-02-07 08:00] VITALS: BP 122/69
--- NOTE | 2021-02-07 08:00 | NUR ---
gps signal fitter: notes pt resting quietly in bed. no distress noted. pt is independent with adl's. will continue to monitor.
[2021-02-07] MEDS: ESTRADIOL 1 MG TABLET PO SCH (08:18)
[2021-02-07] MEDS: NEOMY SULF/BACITRAC ZN/POLY 15 GM TUBE TP SCH ×2 (08:18→09:00)
[2021-02-07] MEDS: BUPROPION XL 150 MG TAB.ER.24 PO SCH (08:18)
[2021-02-07] MEDS: PANTOPRAZOLE 40 MG TABLET.DR PO SCH (08:18)
[2021-02-07] MEDS: ZIPRASIDONE 20 MG CAPSULE PO SCH ×2 (08:18→17:23)
[2021-02-07] MEDS: MONTELUKAST SODIUM (10MG) 10 MG TABLET PO SCH (08:18)
[2021-02-07] MEDS: MAGNESIUM HYDROXIDE 30 ML UDC PO PRN (08:23)
[2021-02-07] MEDS: BUDESONIDE RESPULE INH 0.5 MG/2 ML AMPUL.NEB NEB SCH ×2 (08:27→15:08)
--- NOTE | 2021-02-07 13:46 | NUR ---
SNF Referral: MAGEN faxed a referral to [facility] with attn to Miguel to the fax number: [phone].
--- NOTE | 2021-02-07 14:00 | NUR ---
gps sewing machine operator plastic zipper: notes r.t. at bedside for hhn tx.
[2021-02-07 16:00] VITALS: BP 132/78
[2021-02-07 20:00] VITALS: BP 129/59
[2021-02-07] MEDS: TRAZODONE 50 MG TABLET PO SCH (21:10)
[2021-02-07] MEDS: ATORVASTATIN 40 MG TABLET PO SCH ×3 (22:00→22:19)
[2021-02-08] MEDS: ALBUTEROL FS 2.5 MG/3 ML VIAL.NEB NEB SCH ×4 (01:15→20:47)
[2021-02-08] MEDS: IPRATROPIUM NEB FS 0.5 MG/2.5 ML AMPUL.NEB NEB SCH ×4 (01:15→20:47)
[2021-02-08] MEDS: LORAZEPAM 0.5 MG TABLET PO PRN (03:14)
--- NOTE | 2021-02-08 03:14 | NUR ---
GPS RN NOTE PATIENT C/O NOT SLEEPING WELL AND FEELING ANXIOUS. ADMINISTERED ATIVAN ORDERED. WILL CONTINUE TO MONITOR FOR BEHAVIOR AND SLEEP.
--- NOTE | 2021-02-08 05:34 | NUR ---
GPS RN CLOSING NOTE PATIENT SLEEPING IN BED A/OX3. TOLERATING ROOM AIR WELL WITH NO SOB. COOPERATIVE WITH CARE. NO SI/HI AT THIS TIME. DENIES PAIN / DISCOMFORT AT THIS TIME. SAFETY MEASURES IN PLACE: BED IN LOWEST LOCKED POSITION, SIDE RAILS UPX2, EDUCATED TO USE CALL LIGHT, BED ALARMS ON. ALL NEEDS ATTENDED AND ANTICIPATED. WILL ENDORSE CARE PLAN FOR MONITORING FOR SAFETY AND BEHAVIOR TO MORNING RN.
[2021-02-08] MEDS: BUDESONIDE RESPULE INH 0.5 MG/2 ML AMPUL.NEB NEB SCH ×2 (07:24→15:00)
[2021-02-08] MEDS: PANTOPRAZOLE 40 MG TABLET.DR PO SCH (07:32)
[2021-02-08 08:00] VITALS: BP 133/71
[2021-02-08] MEDS: MONTELUKAST SODIUM (10MG) 10 MG TABLET PO SCH (08:22)
[2021-02-08] MEDS: ZIPRASIDONE 20 MG CAPSULE PO SCH ×2 (08:22→17:02)
[2021-02-08] MEDS: ESTRADIOL 1 MG TABLET PO SCH (08:22)
[2021-02-08] MEDS: BUPROPION XL 150 MG TAB.ER.24 PO SCH (08:22)
[2021-02-08] MEDS: NEOMY SULF/BACITRAC ZN/POLY 15 GM TUBE TP SCH (08:24)
--- NOTE | 2021-02-08 09:00 | NUR ---
RN NOTE- PT RESTING EASILY AWAKENED, INTERACTIVE AFFECT APPROPRIATE, CAN BE LABILE AT TIMES, POINTAKE GOOD MED COMPLIANT DENYING SI HI AH VH
--- NOTE | 2021-02-08 10:41 | NUR ---
SNF Contact: LONNY ([phone]) from [facility] contacted the SW and stated that the pt was accepted to their facility.
--- NOTE | 2021-02-08 10:41 | NUR ---
[facility] Contact: MAGEN received a call from Eva ([phone]) and MAGEN informed her that the pt is going to be discharged to [facility] and that there is no discharge date as of right now.
[2021-02-08 16:00] VITALS: BP 114/57
--- NOTE | 2021-02-08 16:27 | NUR ---
RN NOTE- RT ON UNIT ABOUT ONE HR AGO. BREATHING TX DONE
[2021-02-08 20:08] VITALS: BP 119/68
[2021-02-08] MEDS: TRAZODONE 50 MG TABLET PO SCH (21:30)
[2021-02-09] MEDS: IPRATROPIUM NEB FS 0.5 MG/2.5 ML AMPUL.NEB NEB SCH ×4 (01:30→22:40)
[2021-02-09] MEDS: ALBUTEROL FS 2.5 MG/3 ML VIAL.NEB NEB SCH ×4 (01:30→22:40)
--- NOTE | 2021-02-09 06:39 | NUR ---
GPS RN CLOSING NOTES: PATIENT IS LAYING ON BED, AWAKE, A/O X3. PATIENT SLEPT 8HRS THIS SHIFT. PATIENT WAS COMPLIANT WITH MEDICATION THIS SHIFT. NO S/S OF DISTRESS. RESPIRATION EVEN AND UNLABORED WITH EQUAL RISE AND FALL OF THE CHEST ON ROOM AIR. ALL PATIENT CARE NEEDS HAVE BEEN MET ANTICIPATED. WILL CONTINUE TO MONITOR FOR SAFETY, MOOD AND BEHAVIOR AND ENDORSE TO AM SHIFT.
[2021-02-09 08:00] VITALS: BP 127/66
[2021-02-09] MEDS: PANTOPRAZOLE 40 MG TABLET.DR PO SCH (08:09)
[2021-02-09] MEDS: BUPROPION XL 150 MG TAB.ER.24 PO SCH (08:09)
[2021-02-09] MEDS: ESTRADIOL 1 MG TABLET PO SCH (08:10)
[2021-02-09] MEDS: MONTELUKAST SODIUM (10MG) 10 MG TABLET PO SCH (08:10)
[2021-02-09] MEDS: ZIPRASIDONE 20 MG CAPSULE PO SCH ×2 (08:10→16:34)
[2021-02-09] MEDS: NEOMY SULF/BACITRAC ZN/POLY 15 GM TUBE TP SCH (08:17)
[2021-02-09] MEDS: BUDESONIDE RESPULE INH 0.5 MG/2 ML AMPUL.NEB NEB SCH ×2 (08:19→14:13)
--- NOTE | 2021-02-09 09:00 | NUR ---
RN NOTE- MOSTLY UNCHANGED, BRIGHTER AFFECT, LAUGHING AT TIMES, PT W NEBULIZER TX FOR SOB, INTERACTIVE AFFECT APPROPRIATE, PO INTAKE GOOD MED COMPLIANT DENYING SI HI AH VH
[2021-02-09 16:00] VITALS: BP 146/92
[2021-02-09] MEDS: MAGNESIUM HYDROXIDE 30 ML UDC PO PRN (18:14)
--- NOTE | 2021-02-09 18:15 | NUR ---
RN NOTE- C/O CONSTIPATION. MILK OF MAGNESIA 30 CC GIVEN AT THIS TIME
[2021-02-09] MEDS: HYDROCORTISONE 1% CREAM 28.35 GM TUBE TP SCH (18:39)
[2021-02-09 19:36] VITALS: BP 133/72
[2021-02-09] MEDS: CARBAMAZEPINE 200 MG TABLET PO SCH (21:28)
[2021-02-09] MEDS: TRAZODONE 50 MG TABLET PO SCH (21:29)
[2021-02-09] MEDS: ATORVASTATIN 40 MG TABLET PO SCH ×2 (21:33→21:41)
--- NOTE | 2021-02-09 21:34 | NUR ---
GPS RN NOTES: PATIENT SPIT OUT LIPITOR 40MG ORDERED, STATING "I DON'T TAKE THIS MEDICATION, I WILL SWELL". ALSO, PLEASE REFER TO ALLERGY SECTION, PATIENT HAS A LOT OF MEDICATIONS LISTED THAT SHE'S ALLERGIC TO. WILL CONTINUE TO MONITOR.
[2021-02-10] MEDS: IPRATROPIUM NEB FS 0.5 MG/2.5 ML AMPUL.NEB NEB SCH ×4 (01:56→20:21)
[2021-02-10] MEDS: ALBUTEROL FS 2.5 MG/3 ML VIAL.NEB NEB SCH ×4 (01:56→20:21)
--- NOTE | 2021-02-10 06:44 | NUR ---
GPS RN CLOSING NOTES: PATIENT IS SLEEPING COMFORTABLY IN BED. PATIENT SLEPT 8HRS THIS SHIFT. PATIENT WAS COMPLIANT WITH MEDICATION THIS SHIFT. NO S/S OF DISTRESS. RESPIRATION EVEN AND UNLABORED WITH EQUAL RISE AND FALL OF THE CHEST ON ROOM AIR. ALL PATIENT CARE NEEDS HAVE BEEN MET ANTICIPATED. BED IN LOWEST POSITION AND LOCKED. WILL CONTINUE TO MONITOR FOR SAFETY, MOOD AND BEHAVIOR AND ENDORSE TO AM SHIFT.
[2021-02-10 08:00] VITALS: BP 114/58
[2021-02-10] MEDS: BUDESONIDE RESPULE INH 0.5 MG/2 ML AMPUL.NEB NEB SCH ×2 (08:41→14:27)
[2021-02-10] MEDS: ZIPRASIDONE 20 MG CAPSULE PO SCH ×2 (08:48→18:17)
[2021-02-10] MEDS: ESTRADIOL 1 MG TABLET PO SCH (08:48)
[2021-02-10] MEDS: BUPROPION XL 150 MG TAB.ER.24 PO SCH (08:48)
[2021-02-10] MEDS: PANTOPRAZOLE 40 MG TABLET.DR PO SCH (08:48)
[2021-02-10] MEDS: CARBAMAZEPINE 200 MG TABLET PO SCH ×2 (08:48→21:14)
[2021-02-10] MEDS: MONTELUKAST SODIUM (10MG) 10 MG TABLET PO SCH (08:48)
[2021-02-10] MEDS: NEOMY SULF/BACITRAC ZN/POLY 15 GM TUBE TP SCH (08:50)
[2021-02-10] MEDS: HYDROCORTISONE 1% CREAM 28.35 GM TUBE TP SCH ×2 (08:51→18:17)
[2021-02-10] MEDS: MAGNESIUM HYDROXIDE 30 ML UDC PO PRN (09:36)
[2021-02-10 16:00] VITALS: BP 115/71
[2021-02-10] MEDS: TRAZODONE 50 MG TABLET PO SCH (19:31)
[2021-02-10 20:34] VITALS: BP 130/63
[2021-02-10] MEDS: ATORVASTATIN 40 MG TABLET PO SCH (21:14)
[2021-02-10] MEDS: LORAZEPAM 0.5 MG TABLET PO PRN (23:22)
--- NOTE | 2021-02-10 23:23 | NUR ---
RN NOTES: ANXIETY PT. C/O FEELING ANXIOUS , ATIVAN 1 MG PO PRN GIVEN PER PT. REQUEST , WILL CONTINUE TO MONITOR.
[2021-02-11] MEDS: IPRATROPIUM NEB FS 0.5 MG/2.5 ML AMPUL.NEB NEB SCH ×5 (01:43→23:44)
[2021-02-11] MEDS: ALBUTEROL FS 2.5 MG/3 ML VIAL.NEB NEB SCH ×5 (01:43→23:44)
[2021-02-11 08:00] VITALS: BP 109/55
[2021-02-11] MEDS: BUDESONIDE RESPULE INH 0.5 MG/2 ML AMPUL.NEB NEB SCH ×3 (08:18→15:19)
[2021-02-11] MEDS: ZIPRASIDONE 20 MG CAPSULE PO SCH ×2 (08:31→17:02)
[2021-02-11] MEDS: PANTOPRAZOLE 40 MG TABLET.DR PO SCH (08:31)
[2021-02-11] MEDS: BUPROPION XL 150 MG TAB.ER.24 PO SCH (08:31)
[2021-02-11] MEDS: CARBAMAZEPINE 200 MG TABLET PO SCH ×2 (08:31→22:04)
[2021-02-11] MEDS: MONTELUKAST SODIUM (10MG) 10 MG TABLET PO SCH (08:31)
[2021-02-11] MEDS: ESTRADIOL 1 MG TABLET PO SCH (08:31)
[2021-02-11] MEDS: NEOMY SULF/BACITRAC ZN/POLY 15 GM TUBE TP SCH (08:32)
[2021-02-11] MEDS: HYDROCORTISONE 1% CREAM 28.35 GM TUBE TP SCH ×2 (08:32→17:03)
[2021-02-11 16:00] VITALS: BP 113/66
[2021-02-11 20:00] VITALS: BP 137/71
[2021-02-11 20:09] VITALS: BP 137/71
[2021-02-11] MEDS: ATORVASTATIN 40 MG TABLET PO SCH ×2 (22:00→22:04)
[2021-02-11] MEDS: TRAZODONE 50 MG TABLET PO SCH (22:04)
--- NOTE | 2021-02-11 22:08 | NUR ---
GPS RN NOTES PATIENT REFUSED LIPITOR. PER PATIENT IT MAKES HER SWELL. UNABLE TO RETURN TO [facility] BECAUSE IT WAS ALREADY OPENED. DISPOSED IN THE PROPER BIN.
[2021-02-12] MEDS: LORAZEPAM 0.5 MG TABLET PO PRN (01:08)
--- NOTE | 2021-02-12 01:12 | NUR ---
GPS RN NOTES PATIENT C/O JAW/GUM PAIN ASKING IF DOCTOR COULD SEE HER TONIGHT. PER PATIENT IT IS INFECTION AND ASKING FOR ANTIBIOTIC. I TOLD PATIENT IT IS SATURDAY NIGHT AND THERE IS NO DOCTOR ON THE FLOOR AT THE MOMENT AND MOST PROBABLY THEY COULD SEE HER TOMORROW AND ANTIBIOTIC IS PRESCRIBED BY DOCTORS AND I CANNOT GET HER THAT WITHOUT DOCTOR SEEING HER. ASKED PATIENT IF SHE WANTS ATIVAN BECAUSE IT DOES HELP SOME PEOPLE WITH LOCKED JAW WHEN SLEEPING THEY ARE SLEEPING. PATIENT AGREED. GIVEN ATIVAN 1MG PRN. WILL CONT. TO MONITOR.
[2021-02-12] MEDS: IPRATROPIUM NEB FS 0.5 MG/2.5 ML AMPUL.NEB NEB SCH ×4 (02:35→22:55)
[2021-02-12] MEDS: ALBUTEROL FS 2.5 MG/3 ML VIAL.NEB NEB SCH ×4 (02:35→22:55)
--- NOTE | 2021-02-12 06:50 | NUR ---
GPS RN CLOSING NOTE PATIENT IN BED WITH EYES CLOSED, EASY TO AROUSE. NO S/S OF DISTRESS. NO C/O PAIN DARA. ALL NEEDS ATTENDED. SCHED MEDS ADMINISTERED. SAFETY KEPT THE WHOLE SHIFT. DID NOT REPORT ANY SUICIDAL IDEATION OR HOMICIDAL IDEATION. NO SIGNIFICANT CHANGE SINCE LAST SHIFT. WILL ENDORSE CARE TO MORNING RN.
[2021-02-12] MEDS: BUDESONIDE RESPULE INH 0.5 MG/2 ML AMPUL.NEB NEB SCH ×2 (07:05→13:11)
[2021-02-12 08:00] VITALS: BP 98/59
[2021-02-12] MEDS: PANTOPRAZOLE 40 MG TABLET.DR PO SCH (08:39)
[2021-02-12] MEDS: ZIPRASIDONE 20 MG CAPSULE PO SCH ×2 (08:39→16:50)
[2021-02-12] MEDS: BUPROPION XL 150 MG TAB.ER.24 PO SCH (08:39)
[2021-02-12] MEDS: MONTELUKAST SODIUM (10MG) 10 MG TABLET PO SCH (08:39)
[2021-02-12] MEDS: CARBAMAZEPINE 200 MG TABLET PO SCH ×2 (08:39→21:32)
[2021-02-12] MEDS: ESTRADIOL 1 MG TABLET PO SCH (08:40)
[2021-02-12] MEDS: NEOMY SULF/BACITRAC ZN/POLY 15 GM TUBE TP SCH (08:41)
[2021-02-12] MEDS: HYDROCORTISONE 1% CREAM 28.35 GM TUBE TP SCH ×2 (08:41→16:51)
[2021-02-12 16:00] VITALS: BP 110/59
[2021-02-12] MEDS: MAGNESIUM HYDROXIDE 30 ML UDC PO PRN (18:14)
[2021-02-12 20:26] VITALS: BP 133/60
[2021-02-12] MEDS: TRAZODONE 50 MG TABLET PO SCH (21:32)
[2021-02-12] MEDS: ATORVASTATIN 40 MG TABLET PO SCH (21:35)
--- NOTE | 2021-02-12 22:10 | NUR ---
GPS RN NOTES: PATIENT REFUSED LIPITOR 40MG 1TAB PO ORDERED. WILL CONTINUE TO MONITOR.
[2021-02-13] MEDS: ALBUTEROL FS 2.5 MG/3 ML VIAL.NEB NEB SCH ×4 (01:30→14:45)
[2021-02-13] MEDS: IPRATROPIUM NEB FS 0.5 MG/2.5 ML AMPUL.NEB NEB SCH ×4 (01:30→14:45)
--- NOTE | 2021-02-13 06:39 | NUR ---
GPS RN CLOSING NOTES: PATIENT IS AWAKE, A/O X3. PATIENT SLEPT 7HRS THIS SHIFT. WEEKLY SKIN ASSESSMENT DONE, PICTURES TAKEN AND PLACED IN PATIENT CHART. NO NEW SKIN ISSUES. NO S/S OF DISTRESS. RESPIRATION EVEN AND UNLABORED WITH EQUAL RISE AND FALL OF THE CHEST ON ROOM AIR. ALL PATIENT CARE NEEDS HAVE BEEN MET ANTICIPATED. BED IN LOWEST POSITION AND LOCKED, WITH SIDE RAILS UP X2 FOR SAFETY. WILL CONTINUE TO MONITOR FOR SAFETY, MOOD AND BEHAVIOR AND ENDORSE TO AM SHIFT.
[2021-02-13] MEDS: BUDESONIDE RESPULE INH 0.5 MG/2 ML AMPUL.NEB NEB SCH ×3 (07:05→14:45)
[2021-02-13 08:00] VITALS: BP 115/61
[2021-02-13] MEDS: PANTOPRAZOLE 40 MG TABLET.DR PO SCH (08:08)
[2021-02-13] MEDS: ESTRADIOL 1 MG TABLET PO SCH (08:25)
[2021-02-13] MEDS: BUPROPION XL 150 MG TAB.ER.24 PO SCH (08:25)
[2021-02-13] MEDS: MONTELUKAST SODIUM (10MG) 10 MG TABLET PO SCH (08:25)
[2021-02-13] MEDS: CARBAMAZEPINE 200 MG TABLET PO SCH ×2 (08:25→21:43)
[2021-02-13] MEDS: ZIPRASIDONE 20 MG CAPSULE PO SCH ×2 (08:26→17:00)
[2021-02-13] MEDS: HYDROCORTISONE 1% CREAM 28.35 GM TUBE TP SCH ×2 (08:31→17:01)
[2021-02-13] MEDS: NEOMY SULF/BACITRAC ZN/POLY 15 GM TUBE TP SCH (08:31)
[2021-02-13] MEDS: LORAZEPAM 0.5 MG TABLET PO PRN (10:06)
--- NOTE | 2021-02-13 10:06 | NUR ---
RN NOTE: ANXIETY PT C/O INCREASING ANXIETY. UNABLE TO CALM SELF INDEPENDENTLY. REQUESTING ATIVAN. ATIVAN 1MG PO PRN ADMINISTERED. WILL CONT TO MONITOR PT FOR SAFETY, BEHAVIOR AND EFFECTIVENESS OF PRN MEDICATION
[2021-02-13 16:00] VITALS: BP 115/50
[2021-02-13] MEDS ORDERED: BUDESONIDE RESPULE INH 0.5 MG/2 ML AMPUL.NEB NEB SCH (19:30)
[2021-02-13 20:00] VITALS: BP 125/65
[2021-02-13] MEDS: TRAZODONE 50 MG TABLET PO SCH (21:43)
[2021-02-13] MEDS: ATORVASTATIN 40 MG TABLET PO SCH (22:00)
--- NOTE | 2021-02-13 22:04 | NUR ---
GPS RN NOTES: PATIENT REFUSED LIPITOR 40MG 1TAB PO ORDERED. WILL CONTINUE TO MONITOR.
[2021-02-14] MEDS: IPRATROPIUM NEB FS 0.5 MG/2.5 ML AMPUL.NEB NEB SCH ×4 (01:34→20:23)
[2021-02-14] MEDS: ALBUTEROL FS 2.5 MG/3 ML VIAL.NEB NEB SCH ×4 (01:34→20:23)
--- NOTE | 2021-02-14 06:37 | NUR ---
GPS RN CLOSING NOTES: PATIENT AWAKE, A/O X3. PATIENT SLEPT 8HRS THIS SHIFT. PATIENT WAS COMPLIANT WITH MEDICATION THIS SHIFT. NO S/S OF DISTRESS. RESPIRATION EVEN AND UNLABORED WITH EQUAL RISE AND FALL OF THE CHEST ON ROOM AIR. ALL PATIENT CARE NEEDS HAVE BEEN MET ANTICIPATED. BED IN LOWEST POSITION AND LOCKED, WITH SIDE RAILS UP X2 FOR SAFETY. WILL CONTINUE TO MONITOR FOR SAFETY, MOOD AND BEHAVIOR AND ENDORSE TO AM SHIFT.
[2021-02-14] MEDS: PANTOPRAZOLE 40 MG TABLET.DR PO SCH (07:51)
[2021-02-14 08:00] VITALS: BP 118/63
[2021-02-14] MEDS: BUPROPION XL 150 MG TAB.ER.24 PO SCH (08:09)
[2021-02-14] MEDS: ESTRADIOL 1 MG TABLET PO SCH (08:09)
[2021-02-14] MEDS: MONTELUKAST SODIUM (10MG) 10 MG TABLET PO SCH (08:09)
[2021-02-14] MEDS: ZIPRASIDONE 20 MG CAPSULE PO SCH ×2 (08:09→16:11)
[2021-02-14] MEDS: CARBAMAZEPINE 200 MG TABLET PO SCH ×2 (08:09→21:26)
[2021-02-14] MEDS: HYDROCORTISONE 1% CREAM 28.35 GM TUBE TP SCH ×2 (08:10→16:12)
[2021-02-14] MEDS: NEOMY SULF/BACITRAC ZN/POLY 15 GM TUBE TP SCH (08:10)
[2021-02-14] MEDS: BUDESONIDE RESPULE INH 0.5 MG/2 ML AMPUL.NEB NEB SCH ×2 (08:27→20:23)
[2021-02-14] MEDS: MAGNESIUM HYDROXIDE 30 ML UDC PO PRN (08:45)
[2021-02-14] MEDS: LORAZEPAM 0.5 MG TABLET PO PRN (08:45)
--- NOTE | 2021-02-14 08:46 | NUR ---
RN NOTE: CONSTIPATION AND ANXIETY PT C/O CONSTIPATION AND INCREASING ANXIETY. REQUESTING MOM AND ATIVAN PRN. MOM AND ATIVAN 1MG PO PRN ADMNISTERED.
[2021-02-14 16:02] VITALS: BP 133/67
[2021-02-14 20:00] VITALS: BP 124/64
[2021-02-14] MEDS: TRAZODONE 50 MG TABLET PO SCH (21:26)
[2021-02-14] MEDS: ATORVASTATIN 40 MG TABLET PO SCH (21:35)
--- NOTE | 2021-02-14 21:36 | NUR ---
GPS RN NOTES: PATIENT REFUSED LIPITOR 40MG 1TAB PO ORDERED. WILL CONTINUE TO MONITOR.
[2021-02-15] MEDS: IPRATROPIUM NEB FS 0.5 MG/2.5 ML AMPUL.NEB NEB SCH ×4 (01:56→20:26)
[2021-02-15] MEDS: ALBUTEROL FS 2.5 MG/3 ML VIAL.NEB NEB SCH ×4 (01:56→20:26)
[2021-02-15] MEDS: PANTOPRAZOLE 40 MG TABLET.DR PO SCH (07:59)
[2021-02-15 08:00] VITALS: BP 123/74
[2021-02-15] MEDS: BUDESONIDE RESPULE INH 0.5 MG/2 ML AMPUL.NEB NEB SCH ×2 (08:02→20:26)
[2021-02-15] MEDS: ESTRADIOL 1 MG TABLET PO SCH (08:12)
[2021-02-15] MEDS: ZIPRASIDONE 20 MG CAPSULE PO SCH ×2 (08:12→21:10)
[2021-02-15] MEDS: CARBAMAZEPINE 200 MG TABLET PO SCH ×2 (08:12→21:09)
[2021-02-15] MEDS: LORAZEPAM 0.5 MG TABLET PO PRN ×2 (08:12→21:45)
[2021-02-15] MEDS: BUPROPION XL 150 MG TAB.ER.24 PO SCH (08:12)
[2021-02-15] MEDS: MONTELUKAST SODIUM (10MG) 10 MG TABLET PO SCH (08:12)
--- NOTE | 2021-02-15 08:13 | NUR ---
RN NOTE : ANXIETY PT C/O INCREASING ANXIETY. PT REQUESTING ATIVAN. ATIVAN 1MG PO PRN ADMINISTERED.
[2021-02-15] MEDS: HYDROCORTISONE 1% CREAM 28.35 GM TUBE TP SCH ×2 (08:25→16:25)
[2021-02-15] MEDS: NEOMY SULF/BACITRAC ZN/POLY 15 GM TUBE TP SCH (08:25)
--- NOTE | 2021-02-15 12:06 | NUR ---
[facility] Contact: MAGEN was contacted by Allison and [facility] ([phone]). Allison inquired about pts admit date and reason for admit. MAGEN informed Allison that pt was admitted on 02/01/21 due to mental status.
[2021-02-15 16:00] VITALS: BP 108/53
[2021-02-15] MEDS: MAGNESIUM HYDROXIDE 30 ML UDC PO PRN (16:25)
--- NOTE | 2021-02-15 16:25 | NUR ---
RN NOTE: CONSTIPATION PT C/O CONSTIPATION. MEDICATED WITH MILK OF MAGNESIA PO PRN.
[2021-02-15 20:08] VITALS: BP 125/48
[2021-02-15] MEDS: TRAZODONE 50 MG TABLET PO SCH (21:09)
[2021-02-15] MEDS: ATORVASTATIN 40 MG TABLET PO SCH ×2 (21:10→22:00)
--- NOTE | 2021-02-15 21:45 | NUR ---
GPS-RN NOTES: PATIENT IS ANXIOUS AND AGITATED. PRN ATIVAN 1MG PO GIVEN. WILL CONTINUE TO MONITOR FOR PATIENT'S SAFETY.
--- NOTE | 2021-02-15 22:00 | NUR ---
GPS-RN NOTES: MEDICATION REFUSAL PATIENT REFUSED SCHEDULED LIPITOR FOR TONIGHT. DESPITE OF EXPLANATION THE RISKS AND BENEFITS BUT PATIENT CONTINUED TO REFUSE. WILL ENDORSE TO DAY SHIFT NURSE.
[2021-02-16] MEDS: IPRATROPIUM NEB FS 0.5 MG/2.5 ML AMPUL.NEB NEB SCH ×4 (02:24→20:51)
[2021-02-16] MEDS: ALBUTEROL FS 2.5 MG/3 ML VIAL.NEB NEB SCH ×4 (02:24→20:51)
[2021-02-16] MEDS: BUDESONIDE RESPULE INH 0.5 MG/2 ML AMPUL.NEB NEB SCH ×2 (07:47→20:51)
[2021-02-16 08:00] VITALS: BP 133/74
[2021-02-16] MEDS: PANTOPRAZOLE 40 MG TABLET.DR PO SCH (08:13)
[2021-02-16] MEDS: CARBAMAZEPINE 200 MG TABLET PO SCH ×2 (08:13→20:50)
[2021-02-16] MEDS: BUPROPION XL 150 MG TAB.ER.24 PO SCH (08:14)
[2021-02-16] MEDS: ESTRADIOL 1 MG TABLET PO SCH (08:14)
[2021-02-16] MEDS: MONTELUKAST SODIUM (10MG) 10 MG TABLET PO SCH (08:14)
[2021-02-16] MEDS: ZIPRASIDONE 20 MG CAPSULE PO SCH ×2 (08:14→21:40)
[2021-02-16] MEDS: NEOMY SULF/BACITRAC ZN/POLY 15 GM TUBE TP SCH (09:50)
[2021-02-16] MEDS: HYDROCORTISONE 1% CREAM 28.35 GM TUBE TP SCH ×2 (09:51→16:35)
[2021-02-16 16:00] VITALS: BP 133/73
--- NOTE | 2021-02-16 16:14 | NUR ---
Interaction with pt: SW met with pt and informed her that she is going to be discharged to [facility]. SW informed pt that there is no discharge date at this time.
[2021-02-16] MEDS: LORAZEPAM 0.5 MG TABLET PO PRN (19:25)
--- NOTE | 2021-02-16 19:27 | NUR ---
RN NOTES : ANXIETY PT. C/O FEELING ANXIOUS , ATIVAN 1 MG PO PRN GIVEN PER PT. REQUEST, WILL CONTINUE TO MONITOR.
[2021-02-16] MEDS: MAGNESIUM HYDROXIDE 30 ML UDC PO PRN (19:59)
--- NOTE | 2021-02-16 20:02 | NUR ---
RN NOTES: CONSTIPATION PT. C/O CONSTIPATION 30 Ml MOM PO PRN GIVEN PER PT. REQUEST, WILL CONTINUE TO MONITOR.
[2021-02-16 20:49] VITALS: BP 135/61
[2021-02-16] MEDS: ATORVASTATIN 40 MG TABLET PO SCH (21:41)
[2021-02-16] MEDS: TRAZODONE 50 MG TABLET PO SCH (21:41)
--- NOTE | 2021-02-16 21:42 | NUR ---
GPS-RN NOTES: MEDICATION REFUSAL PATIENT REFUSED SCHEDULED LIPITOR FOR TONIGHT. ENCOURAGED, DESPITE OF EXPLANATION THE RISKS AND BENEFITS, BUT PATIENT CONTINUED TO REFUSE. WILL CONTINUITY WITH CARE.
[2021-02-17] MEDS: ALBUTEROL FS 2.5 MG/3 ML VIAL.NEB NEB SCH ×4 (02:18→20:47)
[2021-02-17] MEDS: IPRATROPIUM NEB FS 0.5 MG/2.5 ML AMPUL.NEB NEB SCH ×4 (02:18→20:47)
[2021-02-17 08:00] VITALS: BP 100/59
[2021-02-17] MEDS: PANTOPRAZOLE 40 MG TABLET.DR PO SCH (08:25)
[2021-02-17] MEDS: BUDESONIDE RESPULE INH 0.5 MG/2 ML AMPUL.NEB NEB SCH ×2 (08:39→20:47)
[2021-02-17] MEDS: CARBAMAZEPINE 200 MG TABLET PO SCH ×2 (08:41→20:31)
[2021-02-17] MEDS: MONTELUKAST SODIUM (10MG) 10 MG TABLET PO SCH (08:41)
[2021-02-17] MEDS: BUPROPION XL 150 MG TAB.ER.24 PO SCH (08:41)
[2021-02-17] MEDS: ESTRADIOL 1 MG TABLET PO SCH (08:41)
[2021-02-17] MEDS: ZIPRASIDONE 20 MG CAPSULE PO SCH ×2 (08:41→22:10)
[2021-02-17] MEDS: NEOMY SULF/BACITRAC ZN/POLY 15 GM TUBE TP SCH (09:02)
[2021-02-17] MEDS: HYDROCORTISONE 1% CREAM 28.35 GM TUBE TP SCH ×2 (09:02→16:18)
--- NOTE | 2021-02-17 10:58 | NUR ---
RN-NOTES PATIENT IN BED SLEEPING ,EASILY AROUSED,NO ACUTE DISTRESS NOTED. ENDORSED TO THE RN NURSE FOR THE CONTINUITY OF CARE .
--- NOTE | 2021-02-17 14:12 | NUR ---
Interaction with pt: SW met with pt and reminded her she will be discharged to [facility]. SW informed pt that there is no discharge date at this time.
[2021-02-17 16:00] VITALS: BP 147/84
--- NOTE | 2021-02-17 16:13 | NUR ---
Family contact: SW received a phone call from pts sister Nicole ([phone]) regarding pts mental status. Sister informed SW of pts mycologist's contact information; Eva ([phone]). SW informed sister that pt was accepted to [facility] and she will be discharged to that facility upon discharge date.
[2021-02-17] MEDS: LORAZEPAM 0.5 MG TABLET PO PRN (19:40)
--- NOTE | 2021-02-17 19:40 | NUR ---
RN NOTES : ANXIETY PT. C/O FEELING ANXIOUS, PARANOID , ATIVAN 1 MG PO PRN GIVEN PER PT. REQUEST, WILL CONTINUE TO MONITOR.
[2021-02-17 20:28] VITALS: BP 135/63
[2021-02-17] MEDS: ATORVASTATIN 40 MG TABLET PO SCH (22:00)
[2021-02-17] MEDS: TRAZODONE 50 MG TABLET PO SCH (22:10)
[2021-02-18] MEDS: ALBUTEROL FS 2.5 MG/3 ML VIAL.NEB NEB SCH ×4 (02:20→20:21)
[2021-02-18] MEDS: IPRATROPIUM NEB FS 0.5 MG/2.5 ML AMPUL.NEB NEB SCH ×4 (02:21→20:21)
[2021-02-18] MEDS: BUDESONIDE RESPULE INH 0.5 MG/2 ML AMPUL.NEB NEB SCH ×2 (07:30→20:21)
[2021-02-18 08:00] VITALS: BP_SYST 107; BP_SYST 115; BP_DIAS 53; BP_DIAS 69
[2021-02-18] MEDS: PANTOPRAZOLE 40 MG TABLET.DR PO SCH (08:11)
[2021-02-18] MEDS: ESTRADIOL 1 MG TABLET PO SCH (08:17)
[2021-02-18] MEDS: ZIPRASIDONE 20 MG CAPSULE PO SCH ×2 (08:17→21:35)
[2021-02-18] MEDS: CARBAMAZEPINE 200 MG TABLET PO SCH ×2 (08:17→20:16)
[2021-02-18] MEDS: MONTELUKAST SODIUM (10MG) 10 MG TABLET PO SCH (08:17)
[2021-02-18] MEDS: BUPROPION XL 150 MG TAB.ER.24 PO SCH (08:17)
[2021-02-18] MEDS: NEOMY SULF/BACITRAC ZN/POLY 15 GM TUBE TP SCH (08:21)
[2021-02-18] MEDS: HYDROCORTISONE 1% CREAM 28.35 GM TUBE TP SCH ×2 (08:22→16:06)
[2021-02-18] MEDS: LORAZEPAM 0.5 MG TABLET PO PRN ×2 (12:39→19:27)
--- NOTE | 2021-02-18 12:40 | NUR ---
RN-NOTES NOTED PATIENT AGITATED AND ANGRY WORRIED ABOUT HER OTHER THINGS IN HER PLACE. REASSURED PATIENT AND OFFERED ATIVAN 1MG P.O PRN ORDER. WILL CONT. MONITORING FOR SAFETY AND BEHAVIOR.
--- NOTE | 2021-02-18 13:43 | NUR ---
RN-NOTES PATIENT IN THE DAY ROOM,CALM,NO ACUTE DISTRESS NOTED.
[2021-02-18 16:00] VITALS: BP 128/66
--- NOTE | 2021-02-18 19:28 | NUR ---
RN NOTES : ANXIETY PT. C/O FEELING ANXIOUS, PARANOID, RESTLESS , ATIVAN 1 MG PO PRN GIVEN PER PT. REQUEST, WILL CONTINUE TO MONITOR.
[2021-02-18 20:21] VITALS: BP 115/65
[2021-02-18] MEDS: ATORVASTATIN 40 MG TABLET PO SCH (21:35)
[2021-02-18] MEDS: TRAZODONE 50 MG TABLET PO SCH (21:35)
[2021-02-19] MEDS: IPRATROPIUM NEB FS 0.5 MG/2.5 ML AMPUL.NEB NEB SCH ×4 (02:18→20:35)
[2021-02-19] MEDS: ALBUTEROL FS 2.5 MG/3 ML VIAL.NEB NEB SCH ×4 (02:18→20:35)
[2021-02-19 08:00] VITALS: BP 125/63
[2021-02-19] MEDS: ZIPRASIDONE 20 MG CAPSULE PO SCH ×2 (08:51→22:12)
[2021-02-19] MEDS: BUPROPION XL 150 MG TAB.ER.24 PO SCH (08:51)
[2021-02-19] MEDS: CARBAMAZEPINE 200 MG TABLET PO SCH ×2 (08:51→22:13)
[2021-02-19] MEDS: ESTRADIOL 1 MG TABLET PO SCH (08:51)
[2021-02-19] MEDS: PANTOPRAZOLE 40 MG TABLET.DR PO SCH (08:51)
[2021-02-19] MEDS: MONTELUKAST SODIUM (10MG) 10 MG TABLET PO SCH (08:53)
[2021-02-19] MEDS: BUDESONIDE RESPULE INH 0.5 MG/2 ML AMPUL.NEB NEB SCH ×2 (09:12→14:06)
[2021-02-19] MEDS: NEOMY SULF/BACITRAC ZN/POLY 15 GM TUBE TP SCH (10:10)
[2021-02-19] MEDS: HYDROCORTISONE 1% CREAM 28.35 GM TUBE TP SCH ×2 (10:10→16:29)
[2021-02-19 16:00] VITALS: BP 136/83
[2021-02-19] MEDS: LORAZEPAM 0.5 MG TABLET PO PRN (17:35)
--- NOTE | 2021-02-19 17:35 | NUR ---
RN-CO: ATIVAN 1 MG PO GIVEN FOR ANXIETY.
[2021-02-19 20:49] VITALS: BP 131/73
[2021-02-19] MEDS: ATORVASTATIN 40 MG TABLET PO SCH (22:00)
[2021-02-19] MEDS: TRAZODONE 50 MG TABLET PO SCH (22:12)
--- NOTE | 2021-02-19 22:45 | NUR ---
Patient in bed.Refused to take photos for weekly skin assessment.Advised of risk and benefits.
[2021-02-20] MEDS: ALBUTEROL FS 2.5 MG/3 ML VIAL.NEB NEB SCH ×4 (02:07→21:24)
[2021-02-20] MEDS: IPRATROPIUM NEB FS 0.5 MG/2.5 ML AMPUL.NEB NEB SCH ×4 (02:07→21:24)
[2021-02-20] MEDS: PANTOPRAZOLE 40 MG TABLET.DR PO SCH (07:48)
[2021-02-20 08:00] VITALS: BP 120/65
[2021-02-20] MEDS: BUDESONIDE RESPULE INH 0.5 MG/2 ML AMPUL.NEB NEB SCH ×2 (08:05→21:24)
[2021-02-20] MEDS: BUPROPION XL 150 MG TAB.ER.24 PO SCH (08:23)
[2021-02-20] MEDS: ZIPRASIDONE 20 MG CAPSULE PO SCH ×2 (08:23→21:59)
[2021-02-20] MEDS: MONTELUKAST SODIUM (10MG) 10 MG TABLET PO SCH (08:23)
[2021-02-20] MEDS: CARBAMAZEPINE 200 MG TABLET PO SCH ×2 (08:23→21:58)
[2021-02-20] MEDS: ESTRADIOL 1 MG TABLET PO SCH (08:23)
[2021-02-20] MEDS: HYDROCORTISONE 1% CREAM 28.35 GM TUBE TP SCH ×2 (08:24→16:23)
[2021-02-20] MEDS: NEOMY SULF/BACITRAC ZN/POLY 15 GM TUBE TP SCH (08:24)
[2021-02-20 16:00] VITALS: BP 121/58
[2021-02-20 20:00] VITALS: BP 156/83
[2021-02-20] MEDS: TRAZODONE 50 MG TABLET PO SCH (21:58)
[2021-02-20] MEDS: ATORVASTATIN 40 MG TABLET PO SCH (21:59)
[2021-02-20 22:00] VITALS: BP 134/76
--- NOTE | 2021-02-20 22:00 | NUR ---
GPS-RN NOTES: MEDICATION REFUSAL PATIENT REFUSED SCHEDULED LIPITOR. ENCOURAGED, DESPITE OF EXPLANATION THE RISKS AND BENEFITS, BUT PATIENT CONTINUED TO REFUSE. WILL CONTINUITY WITH CARE.
[2021-02-21] MEDS: ALBUTEROL FS 2.5 MG/3 ML VIAL.NEB NEB SCH ×2 (02:14→08:51)
[2021-02-21] MEDS: IPRATROPIUM NEB FS 0.5 MG/2.5 ML AMPUL.NEB NEB SCH ×2 (02:14→08:51)
[2021-02-21 08:00] VITALS: BP 117/58
[2021-02-21] MEDS: BUDESONIDE RESPULE INH 0.5 MG/2 ML AMPUL.NEB NEB SCH (08:51)
[2021-02-21] MEDS: PANTOPRAZOLE 40 MG TABLET.DR PO SCH (09:05)
[2021-02-21] MEDS: ZIPRASIDONE 20 MG CAPSULE PO SCH (09:05)
[2021-02-21] MEDS: MONTELUKAST SODIUM (10MG) 10 MG TABLET PO SCH (09:05)
--- NOTE | 2021-02-21 09:05 | NUR ---
[facility] Contact: MAGEN called Eva from [facility] ([phone]) to inform her of pts discharge date 02/21/2021 at 1:30 pm to [facility].
[2021-02-21] MEDS: NEOMY SULF/BACITRAC ZN/POLY 15 GM TUBE TP SCH (09:06)
[2021-02-21] MEDS: CARBAMAZEPINE 200 MG TABLET PO SCH (09:06)
[2021-02-21] MEDS: HYDROCORTISONE 1% CREAM 28.35 GM TUBE TP SCH (09:06)
[2021-02-21] MEDS: ESTRADIOL 1 MG TABLET PO SCH (09:06)
[2021-02-21] MEDS: BUPROPION XL 150 MG TAB.ER.24 PO SCH (09:06)
--- NOTE | 2021-02-21 09:07 | NUR ---
Family Contact: SW called Amilcar pts brother in law ([phone]) to inform him of pts discharge for today 02/21/2021 at 1:30pm. Brother in law did not answer and SW left a voicemail regarding discharge.
--- NOTE | 2021-02-21 09:12 | NUR ---
Family contact: SW called pts sister Nicole ([phone]) regarding pts discharge to [facility] at 1:30 pm on 02/21/2021.
[2021-02-21] MEDS: MAG HYDROX/AL HYDROX/SIMETH 30 ML UDC PO PRN (13:37)
--- NOTE | 2021-02-21 14:19 | NUR ---
RN NOTE- PT DISCHARGED AT THIS TIME TO [facility]. PT IS ALERT ORIENTED PERSON PLACE PURPOSE. DEPRESSED W BLUNTED AFFECT, DENIES SI HI AH VH. MED COMPLIANT, MAKES NEEDS KNOWN. SKIN INTACT,. REPORT PHONED TO FACILITY. VERBALIZED UNDERSTANDING RETURNED. VALUABLES RETURNED AND SIGNED FOR. ID [id number] REMOVED. VACCINES REFUSED. ESCORTED OFF UNIT BY STAFF .
--- NOTE | 2021-02-21 14:35 | NUR ---
Updated discharge plan: Pt will be discharged to [facility] ([facility] located at [address] [place] [id number]; ([phone]). Pt will be transported via [facility] at 1:30 PM. SW informed the pts sister Nicole, ([phone]), pts brother in law Fitzgerald ([phone]) and pts block and case maker Eva at [facility] ([phone]) about the pts discharge. Upon discharge, the pt appears to be in a euthymic mood and presented with a congruent affect. Pt appears to be alert and oriented x4 (time, place, self and situation). Pt denies both suicidal and homicidal ideation as well as auditory and visual hallucinations. Pt appears to be ambulatory with an unsteady gait. Pt appears to be well groomed and appropriately dressed. Pt will continue to be under the care of psychiatrist, Dr. Forbes, located at [address] [address]; . Pt will be under the care of wound nurse, Dr. Pond, located at [address] [place] [address]; . Pt was provided with homeless resources and a copy was placed in the chart. The homeless waiver, choice of vendor form and the multidisciplinary exit care form was done, printed, signed, and given to the patient. The choice of vendor form and multidisciplinary exit care form were done, printed, signed, and given to the patient.
[2021-02-21] MEDS ORDERED: LACT10SO3 PO (17:08)
[2021-02-21] MEDS ORDERED: NEOM28.37 TP (17:08)
[2021-02-21] MEDS ORDERED: MAG30ORA PO (17:08)
[2021-02-21] MEDS ORDERED: TRAZ-182 PO (17:08)
[2021-02-21] MEDS ORDERED: HYDR28.32 TP (17:08)
[2021-02-21] MEDS ORDERED: MAGN400O6 PO (17:08)
[2021-02-21] MEDS ORDERED: BUPR300T52 PO (17:08)
[2021-02-21] MEDS ORDERED: ZIPR40CA2 PO (17:08)
[2021-02-21] MEDS ORDERED: PANT40TA2 PO (17:08)
[2021-02-21] MEDS ORDERED: ATOR40TA PO (17:08)
[2021-02-21] MEDS ORDERED: CARB200T PO (17:08)
[2021-02-21] MEDS ORDERED: IPRA0.2S9 IH (17:08)
[2021-02-21] MEDS ORDERED: BUDE0.5A4 IH (17:08)
[2021-02-21] MEDS ORDERED: BISA10SU11 RC (17:08)
[2021-02-21] MEDS ORDERED: ALBU2.5V38 IH (17:08)
[2021-02-21] MEDS ORDERED: TEMA15CA PO (17:08)
== END 2021-02-21 14:20 | DRG 885 ==
LOC: GPS 20:38
PROVIDERS: ADMIT Psychiatry & Neurology Psychiatry; ATTEND Student in an Organized Health Care Education/Training Program
DX: F25.0 Schizoaffective disorder, bipolar type (principal); F01.50 Vascular dementia, unspecified severity, without behavioral disturbance, psychotic disturbance, mood disturbance, and anxiety; H05.012 Cellulitis of left orbit; E44.0 Moderate protein-calorie malnutrition; F29 Unspecified psychosis not due to a substance or known physiological condition; F41.9 Anxiety disorder, unspecified; J44.9 Chronic obstructive pulmonary disease, unspecified; F22 Delusional disorders; J45.909 Unspecified asthma, uncomplicated; Z20.822 Contact with and (suspected) exposure to COVID-19; E78.5 Hyperlipidemia, unspecified; F17.200 Nicotine dependence, unspecified, uncomplicated
CPT/HCPCS: 36415; 80053-TC; 80061-TC; 87081-TC; 94799-TC

== ENCOUNTER 2021-02-21 16:08 | Emergency (ER) | payer MEDICARE, OTHER ==
[~2021-02-21] VITALS: Ht 152.4 cm; Wt 72.6 kg
[2021-02-21 16:08] VITALS: BP 136/72
[~2021-02-21 16:08] MED LIST changes: +CLIN150C16 PO; +IPRA12.9 IH
--- NOTE | 2021-02-21 17:05 | NUR ---
ANNA CALLED AN HOUR.
[2021-02-21] MEDS ORDERED: MAG30ORA PO (17:08)
[2021-02-21] MEDS ORDERED: LACT10SO3 PO (17:08)
[2021-02-21] MEDS ORDERED: TEMA15CA PO (17:08)
[2021-02-21] MEDS ORDERED: ALBU2.5V38 IH (17:08)
[2021-02-21] MEDS ORDERED: PANT40TA2 PO (17:08)
[2021-02-21] MEDS ORDERED: BISA10SU11 RC (17:08)
[2021-02-21] MEDS ORDERED: TRAZ-182 PO (17:08)
[2021-02-21] MEDS ORDERED: BUDE0.5A4 IH (17:08)
[2021-02-21] MEDS ORDERED: CARB200T PO (17:08)
[2021-02-21] MEDS ORDERED: ZIPR40CA2 PO (17:08)
[2021-02-21] MEDS ORDERED: MAGN400O6 PO (17:08)
[2021-02-21] MEDS ORDERED: HYDR28.32 TP (17:08)
[2021-02-21] MEDS ORDERED: BUPR300T52 PO (17:08)
[2021-02-21] MEDS ORDERED: ATOR40TA PO (17:08)
[2021-02-21] MEDS ORDERED: IPRA0.2S9 IH (17:08)
[2021-02-21] MEDS ORDERED: NEOM28.37 TP (17:08)
[2021-02-21] MEDS ORDERED: IPRATROPIUM NEB FS 0.5 MG/2.5 ML AMPUL.NEB NEB ONE (18:30)
[2021-02-21] MEDS ORDERED: MAG HYDROX/AL HYDROX/SIMETH 30 ML UDC PO ONE (18:30)
[2021-02-21] MEDS ORDERED: ALBUTEROL FS 2.5 MG/3 ML VIAL.NEB NEB ONE (18:30)
--- NOTE | 2021-02-21 18:43 | NUR ---
ANNA MIRANDA [employer] M[employer] SUPERVISOR AT BEDSIDE FOR EVAL.
[2021-02-21] MEDS ORDERED: MAG HYDROX/AL HYDROX/SIMETH 30 ML UDC ONE (18:44)
--- NOTE | 2021-02-21 18:53 | NUR ---
RT AT BEDSIDE FOR BREATHING TX.
[2021-02-21] MEDS ORDERED: IPRATROPIUM NEB FS 0.5 MG/2.5 ML AMPUL.NEB ONE (18:57)
[2021-02-21] MEDS ORDERED: ALBUTEROL FS 2.5 MG/3 ML VIAL.NEB ONE (18:57)
[2021-02-21] MEDS ORDERED: LORATADINE 10 MG TABLET PO SCH (20:30)
[2021-02-21] MEDS ORDERED: CARBAMAZEPINE 200 MG TABLET PO ONE (21:00)
[2021-02-21] MEDS ORDERED: TRAZODONE 50 MG TABLET ONE (21:50)
[2021-02-21] MEDS ORDERED: LORATADINE 10 MG TABLET ONE (21:50)
[2021-02-21] MEDS ORDERED: TRAZODONE 50 MG TABLET PO ONE (22:00)
[2021-02-21] MEDS ORDERED: ZIPRASIDONE 20 MG CAPSULE PO SCH (22:00)
--- NOTE | 2021-02-21 22:16 | NUR ---
PT ACCEPTED TO [facility] BY DR EVANS, [facility]. ROOM 138-B. REPORT GIVEN TO LIBERTY MIRANDA FOR CONTINUATION OF CARE.
--- NOTE | 2021-02-21 22:19 | NUR ---
[facility] CALLED FOR TRANSPORT. ETA 30-45 MINUTES.
[2021-02-21] MEDS ORDERED: CARBAMAZEPINE 200 MG TABLET ONE (22:23)
[2021-02-21] MEDS ORDERED: ZIPRASIDONE 20 MG CAPSULE ONE (22:24)
--- NOTE | 2021-02-21 22:52 | NUR ---
[facility] AT BEDSIDE FOR TRANSPORT TO [facility]
--- NOTE | 2021-02-21 23:00 | NUR ---
PT WAS TRANSFERRED TO [facility] IN STABLE CONDITION
== END 2021-02-22 02:25 ==
LOC: ER 16:11
DX: Z04.6 Encounter for general psychiatric examination, requested by authority (principal); J44.9 Chronic obstructive pulmonary disease, unspecified; F25.9 Schizoaffective disorder, unspecified; F22 Delusional disorders; K21.9 Gastro-esophageal reflux disease without esophagitis; I10 Essential (primary) hypertension; Z88.6 Allergy status to analgesic agent; Z88.8 Allergy status to other drugs, medicaments and biological substances; Z88.2 Allergy status to sulfonamides; Z88.0 Allergy status to penicillin; Z88.1 Allergy status to other antibiotic agents; Z88.5 Allergy status to narcotic agent; Z60.2 Problems related to living alone; Z79.899 Other long term (current) drug therapy